=== PATIENT | male | born 1975 | race African-American/Black ===

== ENCOUNTER 2017-03-31 10:41 | Emergency (ER) | payer OTHER ==
[2017-03-31] MEDS ORDERED: Aspirin Low Dose CHEW TAB* 81 MG PO ONE (11:40)
[2017-03-31] MEDS ORDERED: Nitroglycerin TAB 0.4 MG* 0.4 MG TAB SL ONE (11:47)
[2017-03-31] MEDS ORDERED: NS 0.9% 1000 ML* 1,000 ML IV ONE (11:51)
[2017-03-31 12:11] VITALS: BP 190/120
--- NOTE | 2017-03-31 12:12 | UC ---
Davis Almaguer Angela, scribed for Dodie Aguiar MD on 03/31/17 at 1131 . Hypertension HPI - HPI Summary HPI Summary: This pt is a 41 y/o male presenting to [facility] c/o high blood pressure and dizziness since 2 days ago. Pt reports 2 days ago, on Thursday night, pt had tightness in hands and dizziness after eating some ribs. He states he had to grab on the valencia of the bathroom. Did not completely pass out or lose conciousness. Pt reports yesterday he took his BP at home, and it was 205/140. Pt reports feeling "tightness" on both hands and feet, alternating and intermittently. He didn't work yesterday as he didn't feel well. Pt works at [employer]. He is a current everyday smoker. PMHx: HTN. Pt is unsure if he has diabetes. FHx: HTN, diabetes. Pt's BP in the ED is 194/125. Last time he ate or drank water was last night. No GI issues. No diaphoresis. No sob perse. Denies chest pain. - History of Current Complaint Chief Complaint: UCGeneralIllness Stated Complaint: HIGH BLOOD PRESSURE Time Seen by Provider: 03/31/17 11:26 Hx Obtained From: Patient Onset/Duration: Lasting Days Associated Signs And Symptoms: Positive: Dizziness. Negative: Chest Pain, SOB Related Hx: Diagnosed As: - HTN - Risk Factors Cardiac Risk Factors: Hypertension, Family History - HTN and diabetes - Allergies/Home Medications Allergies/Adverse Reactions: Allergies Allergy/AdvReac Type Severity Reaction Status Date / Time No Known Allergies Allergy Verified 03/31/17 10:58 Home Medications: Home Medications Hydrochlorothiazide TAB* [Hydrodiuril TAB*] 50 mg PO DAILY 03/31/17 [History Confirmed 03/31/17] PMH/Surg Hx/FS Hx/Imm Hx Previously Healthy: Yes Other Endocrine History: DENIES: diabetes Cardiovascular History: Hypertension - Surgical History Surgical History: None - Family History Known Family History: Positive: Hypertension, Diabetes - Social History Occupation: Employed Full-time Alcohol Use: Occasionally Substance Use Type: Marijuana Smoking Status (MU): Current Every Day Smoker Review of Systems Constitutional: Other - high blood pressure Skin: Negative Eyes: Negative ENT: Negative Respiratory: Negative Cardiovascular: Negative Gastrointestinal: Negative Genitourinary: Negative Motor: Negative Neurovascular: Negative Musculoskeletal: Negative Neurological: Headache - dizziness. Tightness in left and right hands ( alternating) since Thursday night., Other - dizziness. Tightness in left and right hands (alternating). Psychological: Negative Is Patient Immunocompromised?: No All Other Systems Reviewed And Are Negative: Yes Physical Exam Triage Information Reviewed: Yes Appearance: Well-Appearing - sitting up. conversing easily and appropriately. non-diaphoretic., Well-Nourished Vital Signs: Initial Vital Signs Temp 98.0 F 03/31/17 10:52 Pulse 90 03/31/17 10:52 Resp 20 03/31/17 10:52 BP 194/125 03/31/17 10:52 Pulse Ox 100 03/31/17 10:52 Vital Signs Reviewed: Yes Eye Exam: Normal ENT Exam: Normal Neck exam: Normal Neck: Positive: Supple, Nontender Respiratory Exam: Normal Respiratory: Positive: Chest non-tender, Lungs clear, Normal breath sounds, No respiratory distress, No accessory muscle use Cardiovascular: Positive: RRR - ?S4., No Murmur, Pulses Normal - heart rate correlates with radial pulse., Brisk Capillary Refill Abdominal Exam: Normal - no bruit appreciated Abdomen Description: Positive: Nontender, No Organomegaly, Soft Bowel Sounds: Positive: Present Musculoskeletal Exam: Normal Musculoskeletal: Positive: Strength Intact, ROM Intact - moves all 4 ext's ok Neurological Exam: Normal - nonfocal, grossly intact Psychological Exam: Normal - conversing easily and appropriately Skin Exam: Normal - no visible or reported rash Diagnostics - EKG Cardiac Rate: NL Cardiac Rhythm: Sinus: Normal - 82 bpm. LAD. [address]H. anterior ST elevations V1-V3 ( probably LVH). CT 181. QTc 499. Hypertension Course/Dx - Course Course Of Treatment: Pt will be transferred to the ED via ambulance. I spoke to Dr. Sanchez, from the ED, at 11:44. Pt expresses understanding and agreement. Will go via EMS. EKG reviewed wt pt. no old for comp. Feels better s/p NTG / O2. ASA po 324mg chew. (note iv lopressor n/a). No no problems while in [facility]. FS glucose 107mg/dl. BP at time of departure 190/120. - Differential Dx/Diagnosis Provider Diagnoses: hypertensive emergency Discharge - Discharge Plan Condition: Guarded Disposition: ADMITTED TO [facility] Referrals: No Primary Care Phys,NOPCP [Primary Care Provider] - The documentation as recorded by the Davis yi Angela accurately reflects the service I personally performed and the decisions made by me, Dodie Aguiar MD.
== END 2017-03-31 12:05 | disposition short-term general hospital (02) ==
LOC: UCEAST 10:41
DX: I16.0 Hypertensive urgency (principal)
CPT/HCPCS: 93005; 99203; A9270-GY; G0463

== ENCOUNTER 2017-03-31 12:40 | Inpatient (IN) | payer OTHER ==
[2017-03-31] MEDS ORDERED: Labetalol IV* 5 MG/ML 20 ML VIAL IV PUSH ONE ×2 (14:25→15:42)
[2017-03-31] MEDS ORDERED: Nicotine PATCH 21 MG/24 HR* PATCH TRANSDERM ONE (14:27)
[2017-03-31] MEDS ORDERED: Nicotine PATCH 21 MG/24 HR* PATCH ONE (14:29)
[2017-03-31 14:50] LABS: Add Diff/Slide Review? Slide Review Added; Comments Flag Yes; Hematocrit 43 % (42-52); Hemoglobin 13.9 g/dl (14.0-18.0); Mean Corpuscular HGB Conc 33 g/dl (31-36); Mean Corpuscular Hemoglobin 23 pg (27-31); Mean Corpuscular Volume 71 fL (80-94); Mean Platelet Volume 9 um3 (7.4-10.4); Red Blood Count 6.04 10^6/ul (4.0-5.4); Red Cell Distribution Width 19 % (10.5-15); White Blood Count 8.2 10^3/ul (3.5-10.8)
[2017-03-31 14:50] LABS: Urine Bacteria Absent (Absent); Urine Bilirubin Negative (Negative); Urine Glucose Negative (Negative); Urine Nitrite Negative (Negative)
--- NOTE | 2017-03-31 14:51 | RAD ---
HISTORY: Loss of balance COMPARISONS: None TECHNIQUE: Multiple contiguous axial CT scans were obtained of the head without intravenous contrast. FINDINGS: HEMORRHAGE/INFARCT: There is no hemorrhage or acute infarct. MASSES/SHIFT: There is no mass or shift. EXTRA-AXIAL SPACES: There are no extra-axial fluid collections. SULCI AND VENTRICLES: The sulci and ventricles are normal in size and position for the patient's stated age. CEREBRUM: There are no focal parenchymal abnormalities. BRAINSTEM: There are no focal parenchymal abnormalities. CEREBELLUM: There are no focal parenchymal abnormalities. VESSELS: The vessels are grossly normal. PARANASAL SINUSES: The paranasal sinuses are clear. ORBITS: The orbits are unremarkable. BONES AND SOFT TISSUE: No bone or soft tissue abnormalities are noted. OTHER: None IMPRESSION: NO ACUTE INTRACRANIAL PATHOLOGY.
[2017-03-31 15:07] LABS: Albumin 4.1 g/dL (3.2-5.2); BUN/Creatinine Ratio 20.4 (8-20); Calcium 9.5 mg/dL (8.6-10.3); EGFR African American 114.6 (>60); EGFR Non-African American 89.1 (>60); Globulin 3.4 g/dL (2-4); Total Bilirubin 0.6 mg/dL (0.2-1.0); Total Protein 7.5 g/dL (6.4-8.9)
[2017-03-31 15:09] LABS: Troponin I 0.03 ng/mL (<0.04)
--- NOTE | 2017-03-31 15:14 | RAD ---
INDICATION: Hypertension. COMPARISON: There are no prior studies available for comparison. TECHNIQUE: A portable view of the chest was obtained. FINDINGS: The heart is within normal limits in size. There is increased soft tissue density at the thoracic inlet with mass effect and deviation of the trachea toward the right side possibly secondary to an enlarged thyroid gland versus a mediastinal mass. The lungs are clear. No pleural effusion is seen. IMPRESSION: 1. NO EVIDENCE FOR ACUTE FINDING. 2. INCREASED SOFT TISSUE DENSITY AT THE THORACIC INLET WITH DEVIATION OF THE TRACHEA TOWARD THE RIGHT SIDE POSSIBLY SECONDARY TO AN ENLARGED SUBSTERNAL THYROID GLAND VERSUS A MEDIASTINAL MASS. RECOMMEND CLINICAL CORRELATION AND CONSIDER A CT OF THE CHEST WITH CONTRAST FOR FURTHER EVALUATION.
[2017-03-31 15:51] LABS: Hypochromasia 2+; Microcytosis 2+
[2017-03-31 15:52] LABS: Add Path Review? YES; Schistocytes 1+
--- NOTE | 2017-03-31 16:12 | ED ---
Nain Almaguer Rebecca, scribed for Martin Sanchez MD on 03/31/17 at 1407 . Hypertension - HPI Summary HPI Summary: Pt is a 41 y/o M BIBA from [facility] who presents to ED c/o HTN. Pt reports that the other night he had just left work at [employer], which is a very active job, and got home around 0030. States he had some ribs then began experiencing unsteady gait, stating he as "bumping into valencia." He then took his BP which was 205/140. He proceeded to rest for 30 minutes and retook it, then it was 180/ 130. Reports "so-so" dizziness today, aggravated by heat. Additionally c/o "warmth" and pain around the back of the neck, mild SOB and "tightness" in the hands. Denies CP, palpitations. States that his BP often runs around 160/120- 130. PMHx HTN for which he was previously on Altace and is currently prescribed Hydrochlorothiozide with FHx HTN, DM. Pt has not taken any medications for HTN today - ran out about 1.5-2 weeks ago. - History of Current Complaint Chief Complaint: EDHypertension Stated Complaint: HIGH BLOOD PRESSURE-SENT FROM [facility] Time Seen by Provider: 03/31/17 14:07 Hx Obtained From: Patient Onset/Duration: Still Present Aggravating Factor(s): Other: - Dizziness - aggravated by heat Alleviating Factor(s): Nothing Associated Signs & Symptoms: SOB - mild, Other: - "warmth" and pain in the back of the neck, "tightness" in the hands, unsteady gait Related Hx: Rx Non-Compliance - Has not taken medications for 1.5-2 weeks due to running out - Allergies/Home Medications Allergies/Adverse Reactions: Allergies Allergy/AdvReac Type Severity Reaction Status Date / Time No Known Allergies Allergy Verified 03/31/17 10:58 PMH/Surg Hx/FS Hx/Imm Hx Endocrine/Hematology History: Denies: Hx Diabetes, Hx Thyroid Disease Cardiovascular History: Reports: Hx Hypertension Respiratory History: Denies: Hx Asthma, Hx Chronic Obstructive Pulmonary Disease (COPD) GI History: Denies: Hx Ulcer Infectious Disease History: No Infectious Disease History: Denies: Hx Clostridium Difficile, Hx Hepatitis, Hx Human Immunodeficiency Virus (HIV), Hx of Known/Suspected MRSA, Hx Shingles, Hx Tuberculosis, Hx Known/ Suspected VRE, Hx Known/Suspected VRSA, History Other Infectious Disease, Traveled Outside the [place] in Last 30 Days - Family History Known Family History: Positive: Hypertension, Diabetes - Social History Alcohol Use: Occasionally Substance Use Type: Reports: Marijuana Smoking Status (MU): Current Every Day Smoker Review of Systems Positive: Other - HTN Negative: Palpitations, Chest Pain Positive: Shortness Of Breath - mild Positive: Arthralgia - "warmth" and pain in the back of the neck, "tightness" in the hands Neurological: Other - Unsteady gait All Other Systems Reviewed And Are Negative: Yes Physical Exam Triage Information Reviewed: Yes Vital Signs On Initial Exam: Initial Vitals Temp Pulse Resp BP Pulse Ox 97.9 F 74 16 188/116 99 03/31/17 13:05 03/31/17 13:05 03/31/17 13:05 03/31/17 13:05 03/31/17 13:05 Vital Signs Reviewed: Yes Appearance: Positive: Well-Appearing, No Pain Distress Skin: Positive: Warm, Skin Color Reflects Adequate Perfusion Head/Face: Positive: Normal Head/Face Inspection Eyes: Positive: EOMI ENT: Positive: Normal ENT inspection Neck: Positive: Supple, Nontender Respiratory/Lung Sounds: Positive: Clear to Auscultation, Breath Sounds Present Cardiovascular: Positive: RRR. Negative: Murmur Abdomen Description: Positive: Nontender Musculoskeletal: Positive: Strength/ROM Intact Neurological: Positive: Sensory/Motor Intact, Alert, Oriented to Person Place, Time, CN Intact II-III, Finger to Nose - smooth, Ataxic Gait - slight off balance and fall toward the right - Rigoberto Coma Scale Coma Scale Total: 15 Diagnostics - Vital Signs Vital Signs Temp Pulse Resp BP Pulse Ox 03/31/17 13:05 97.9 F 74 16 188/116 99 - Laboratory Lab Results: Lab Results 03/31/17 03/31/17 03/31/17 Range/Units 11:45 11:45 14:30 WBC 8.2 (3.5-10.8) 10^3/ul RBC 6.04 H (4.0-5.4) 10^6/ul Hgb 13.9 L (14.0-18.0) g/dl Hct 43 (42-52) % MCV 71 L (80-94) fL MCH 23 L (27-31) pg MCHC 33 (31-36) g/dl RDW 19 H (10.5-15) % Plt Count 353 (150-450) 10^3/ul MPV 9 (7.4-10.4) um3 Neut % (Auto) 61.9 (38-83) % Lymph % (Auto) 27.6 (25-47) % Gaston % (Auto) 9.0 (1-9) % Eos % (Auto) 1.3 (0-6) % Baso % (Auto) 0.2 (0-2) % Absolute Neuts (auto) 5.1 (1.5-7.7) 10^3/ul Absolute Lymphs (auto) 2.3 (1.0-4.8) 10^3/ul Absolute Monos (auto) 0.7 (0-0.8) 10^3/ul Absolute Eos (auto) 0.1 (0-0.6) 10^3/ul Absolute Basos (auto) 0 (0-0.2) 10^3/ul Absolute Nucleated RBC 0 10^3/ul Nucleated RBC % 0 Sodium 140 (133-145) mmol/L Potassium Pending Chloride 104 (101-111) mmol/L Carbon Dioxide 27 (22-32) mmol/L Anion Gap Pending BUN 19 (6-24) mg/dL Creatinine 0.93 (0.67-1.17) mg/dL Est GFR ( Amer) 114.6 (>60) Est GFR (Non-Af Amer) 89.1 (>60) BUN/Creatinine Ratio 20.4 H (8-20) Glucose 95 (70-100) mg/dL Calcium 9.5 (8.6-10.3) mg/dL Total Bilirubin 0.60 (0.2-1.0) mg/dL AST Pending ALT 20 (7-52) U/L Alkaline Phosphatase 86 (34-104) U/L Total Creatine Kinase 221 (10-223) U/L Troponin I 0.03 (<0.04) ng/mL Total Protein 7.5 (6.4-8.9) g/dL Albumin 4.1 (3.2-5.2) g/dL Globulin 3.4 (2-4) g/dL Albumin/Globulin Ratio 1.2 (1-3) Urine Color Yellow Urine Appearance Clear Urine pH 6.0 (5-9) Ur Specific [place] 1.018 (1.010-1.030) Urine Protein Negative (Negative) Urine Ketones Negative (Negative) Urine Blood 2+ H (Negative) Urine Nitrate Negative (Negative) Urine Bilirubin Negative (Negative) Urine Urobilinogen Negative (Negative) Ur Leukocyte Esterase Negative (Negative) Urine WBC (Auto) Trace(0-5/hpf) (Absent) Urine RBC (Auto) 3+(>10/hpf) H (Absent) Urine Bacteria Absent (Absent) Urine Glucose Negative (Negative) Urine Ascorbic Acid * H (Negative) Result Diagrams: 03/31/17 11:45 03/31/17 11:45 Lab Statement: Any lab studies that have been ordered have been reviewed, and results considered in the medical decision making process. - Radiology CXR Xray Interpretation: Positive (See Comments) - 1. NO EVIDENCE FOR ACUTE FINDING. 2. INCREASED SOFT TISSUE DENSITY AT THE THORACIC INLET WITH DEVIATION OF THE TRACHEA TOWARD THE RIGHT SIDE POSSIBLY SECONDARY TO AN ENLARGED SUBSTERNAL THYROID GLAND VERSUS A MEDIASTINAL MASS. RECOMMEND CLINICAL CORRELATION AND CONSIDER A CT OF THE CHEST WITH CONTRAST FOR FURTHER EVALUATION. ED physician reviewed radiology report and agrees. Radiology Interpretation Completed By: Radiologist - CT Brain CT CT Interpretation: No Acute Changes - NO ACUTE INTRACRANIAL PATHOLOGY. ED physician reviewed radiology report and agrees. CT Interpretation Completed By: Radiologist - EKG 1449 Cardiac Rate: NL - 76 bpm EKG Rhythm: Sinus Rhythm EKG Interpretation: No STEMI, no acute changes Re-Evaluation - Re-Evaluation First Eval Re-Evaluation Time: 15:40 Comment: Pt is doing well. Second Eval Change: Improved Comment: BP only marginally improved. Dr Belcher and Case consutled and will be admitted. Hypertension Course/Dx - Course Course Of Treatment: 41 yrold with hypertensive urgency, and admission for treatment to hospital - Diagnoses Provider Diagnoses: Hypertensive urgency - Physician Notifications Discussed Care Of Patient With: Jeremi Belcher Time Discussed With Above Provider: 16:00 Instructed by Provider To: Other - Advised that in the ED continued efforts to lower his BP are done as well as discussion with the hospitalist about admission , continued management and MRIs. Discussed care of pt with Dr. Willoughby at 1609 who accepts pt for admission. - Critical Care Time Critical Care Time: 30-74 min Discharge - Discharge Plan Condition: Good Disposition: ADMITTED TO [facility] The documentation as recorded by the Nain yi Rebecca accurately reflects the service I personally performed and the decisions made by me, Martin Sanchez MD.
[2017-03-31 16:16] LABS: Potassium 3.9 mmol/L (3.5-5.0)
[2017-03-31] MEDS ORDERED: PROCHLORPERAZINE INJ 5 MG/ML 2 ML VIAL IV PRN (16:29)
[2017-03-31] MEDS ORDERED: Acetaminophen TAB* 325 MG PO PRN (16:29)
[2017-03-31] MEDS: Nicotine PATCH 21 MG/24 HR* PATCH TRANSDERM SCH (16:39)
[2017-03-31] MEDS ORDERED: Iohexol 350* (CONTRAST) 500 ML MDV IV ONE ×2 (16:43→17:03)
[2017-03-31] MEDS ORDERED: niCARdipine 0.1MG/ML IVPREMIX* 20 MG/200 ML BAG IV SCH (17:00)
--- NOTE | 2017-03-31 18:07 | RAD ---
INDICATION: Tracheal deviation, hypertensive emergency evaluate for aneurysm. COMPARISON: Comparison is made with a prior chest x-ray study from March 31, 2017. TECHNIQUE: A CT angiogram of the chest, abdomen and pelvis was performed with intravenous contrast following intravenous injection of 100 ml of Omnipaque 350 nonionic contrast. Contiguous axial sections were obtained from the lung apices through the symphysis pubis. Images were reconstructed in the coronal and sagittal planes and in a 3-D volume rendered reformatted. FINDINGS: CT ANGIOGRAM OF THE CHEST: There is relatively homogeneous opacification of the pulmonary arteries. No intraluminal filling defect or pulmonary embolism is seen. There is partial anomalous pulmonary venous return with the left upper lobe pulmonary veins draining into the left innominate vein. The heart is normal in size. There appears to be thickening of the wall of the left ventricle suggestive of left ventricular hypertrophy. The thoracic aorta is normal in caliber and demonstrates homogeneous contrast opacification without evidence for dissection. There is a large nodular substernal goiter causing tracheal deviation toward the right side. Recommend follow-up thyroid ultrasound for further evaluation. No significant enlarged mediastinal or hilar lymph nodes are seen. The lungs are clear. No pleural effusion is seen. CT ANGIOGRAM OF THE ABDOMEN AND PELVIS: The abdominal aorta is normal in caliber without hemodynamically significant stenosis. The celiac axis, superior and inferior mesenteric arteries appear patent without evidence for hemodynamically significant stenosis. There are single bilateral renal arteries without hemodynamically significant stenosis. The liver and spleen are normal in size. The liver is decreased in attenuation consistent with fatty infiltration. No significant focal abnormality is seen on this noncontrast study. There is calcific density within the gallbladder most consistent with gallstones. No gallbladder wall thickening is seen. The pancreas appears to be within normal limits. The adrenal glands appear mildly enlarged suggestive of adrenal gland hyperplasia. The kidneys are normal in size without significant focal abnormality or hydronephrosis. No significant enlarged retroperitoneal lymph nodes are seen. The stomach, small and large bowel appear nondistended. There is no evidence for diverticulitis or colitis. No free intraperitoneal air or fluid is seen. No significant focal osseous abnormality is seen. IMPRESSION: 1. NO EVIDENCE FOR AORTIC DISSECTION OR PULMONARY EMBOLISM. 2. PARTIAL ANOMALOUS PULMONARY VENOUS RETURN. THE LEFT UPPER LOBE PULMONARY VEINS DRAIN INTO THE LEFT INNOMINATE VEIN. 3. FINDINGS SUGGESTIVE OF LEFT VENTRICULAR HYPERTROPHY CONSIDER ECHOCARDIOGRAPHY FOR FURTHER EVALUATION. 4. LARGE NODULAR SUBSTERNAL GOITER. CONSIDER FOLLOW-UP THYROID ULTRASOUND EVALUATION. 5. PROBABLE CHOLELITHIASIS.
--- NOTE | 2017-03-31 18:11 | RAD ---
INDICATION: Ataxia and hypertension. COMPARISON: Comparison is made with a prior CT of the brain from March 31, 2017. TECHNIQUE: A CT angiogram of the head and neck was performed following intravenous injection of 80 ml of Omnipaque 350 nonionic contrast. Contiguous axial sections were obtained from the thoracic inlet through the skull vertex. Images were reconstructed in the coronal and sagittal planes and in a 3-D volume rendered format. The distal cervical internal carotid artery diameter is used as the denominator for stenosis measurement. FINDINGS: RIGHT CAROTID: The common and internal carotid arteries appear widely patent without evidence for stenosis. LEFT CAROTID: The common and internal carotid arteries appear widely patent without evidence for stenosis. VERTEBRALS: The vertebral arteries appear patent. CTA BRAIN: The internal carotid, anterior and middle cerebral arteries appear patent without evidence for high-grade stenosis or occlusion. The vertebral, basilar and posterior cerebral arteries appear patent without evidence for high-grade stenosis or occlusion. No gross focal perfusion abnormalities are seen. No aneurysm or vascular malformation is seen. NECK: There is a large nodular substernal goiter which causes deviation of the trachea toward the right side. Consider follow-up outpatient ultrasound for further evaluation. No significant enlarged lymph nodes are seen. The parotid and submandibular glands appear normal. The lung apices appear clear. The sinuses are clear. IMPRESSION: 1. NO EVIDENCE FOR ANEURYSM. 2. NO EVIDENCE FOR CAROTID STENOSIS. 3. NODULAR SUBSTERNAL GOITER CAUSING TRACHEAL DEVIATION. CONSIDER FOLLOW-UP OUTPATIENT ULTRASOUND IMAGING FOR FURTHER EVALUATION. CPT II Codes: 3100F
--- NOTE | 2017-03-31 18:16 | RAD ---
INDICATION: Ataxia and hypertension. COMPARISON: Comparison is made with a prior CT of the brain from March 31, 2017. TECHNIQUE: Sagittal T1, axial T1, T2, susceptibility, FLAIR and diffusion weighted images were obtained. FINDINGS: The ventricles, cisterns and sulci appear to be within normal limits. No significant focal abnormality or mass effect is seen. No areas of restricted diffusion are present. There is no evidence for infarct or hemorrhage. The visualized portion of the paranasal sinuses and mastoid air cells appear clear. IMPRESSION: NEGATIVE EXAM.
[2017-03-31 18:46] LABS: Free T4 1.1 ng/dL (0.61-1.12)
[2017-03-31 18:48] LABS: TSH (Thyroid Stimulating Horm) 1.24 mcIU/mL (0.34-5.60)
[2017-03-31] MEDS ORDERED: Nicotine Patch Removal NOTE FOLLOW UP SCH (21:00)
--- NOTE | 2017-03-31 22:18 | HP ---
CC: Dr. Belcher* HISTORY AND PHYSICAL: DATE OF ADMISSION: 03/31/17 TIME OF EVALUATION: 4:25 p.m. PRIMARY CARE PHYSICIAN: The patient has no primary care provider. CONSULTING NEUROLOGIST: Dr. Belcher. CHIEF COMPLAINT: "My blood pressure is really high." HISTORY OF PRESENT ILLNESS: Mr. Pacheco is a 41-year-old male with a known history of hypertension that has not been treated for a longtime. The patient states that he is very busy at work, does not have a chance to see a primary care provider and "just let things go." Last night, he was complaining of headache on the posterior aspect of his head, radiating to his neck and he states that he usually has this pain when he is very tired or hungry. He had 4 pieces of pizza, took some Tylenol and had improvement. This morning, he woke up throwing up and feeling dizzy. He states he noticed that he was trying to walk straight, but kept falling to the right. He describes episodes like this in the past, but they are usually not this intense. His girlfriend checked his blood pressure and he was 205/140, so he decided to go to [facility] for evaluation and from there, he was referred to our emergency room. His blood pressure here was 199/126. He received 2 doses of IV labetalol with no significant change and the hospitalist service was called for evaluation. PAST MEDICAL HISTORY: 1. Hypertension. 2. Tobacco abuse. SOCIAL HISTORY: The patient is a smoker, half a pack a day since his early 20s. States that he occasionally drinks wine and smokes marijuana daily. He works at [employer]. Surrogate decision maker is his mother, Taylor Pacheco, phone number is [phone]. FAMILY HISTORY: The patient describes a strong family history of hypertension and diabetes on both his maternal and paternal side. Denies any history of cancer in the family. REVIEW OF SYSTEMS: A 14-point review of system was performed and all other pertinent negative and positive findings are in the HPI. PHYSICAL EXAMINATION General: The patient is a pleasant young male, sitting up in the ED stretcher, in no acute distress. Vital Signs: Temperature 97.8, heart rate is 84, respiratory rate 17, oxygen saturation is 99% on room air, blood pressure is 188/123. HEENT: Pupils are equal. Moist mucous membranes. CHEST: Breath sounds present bilaterally with no added sounds. CVS: Normal S1 and S2. Regular rate and rhythm. ABDOMEN: Soft, bowel sounds are present. EXTREMITIES: No edema. NEURO: He is alert and oriented x3. Able to move all 4 extremities. Face is symmetric. Gait is normal with no ataxia at this point. LABORATORY STUDIES/DIAGNOSTIC STUDIES: The patient had a CBC that showed WBC of 8.2, hemoglobin of 13.9, hematocrit of 43, platelets of 353. Chemistries showed a sodium of 140, potassium 3.9, chloride 104, bicarb of 27, BUN of 19, creatinine of 0.93, glucose of 95. Calcium of 9.5. LFTs are normal. CPK is 221. Troponin is 0.03. Urinalysis showed 2+ blood, trace wbc's. CT of the brain without contrast showed no acute intracranial pathology. Portable chest x-ray showed increased soft tissue density at the thoracic inlet with deviation of the trachea towards the right side possibly secondary to an enlarged substernal thyroid gland versus a mediastinal mass. Recommend clinical correlation and consider CT of the chest with contrast for further evaluation. EKG done on 03/31/17 at 1449 showed sinus rhythm at 76 beats per minute with signs of LVH. Mild ST depression in V5 and V6 that could also represent LVH. His EKG done on the same date at [facility] showed similar changes, may be the T inversions are more pronounced on the first EKG. ASSESSMENT AND PLAN: Mr. Pacheco is a 41-year-old male with known untreated hypertension, tobacco abuse, that presented to the emergency room with complaints of headaches, dizziness, nausea, vomiting, found to have hypertensive emergency. 1. Hypertensive emergency. The patient did not respond to IV labetalol in the emergency room and the plan is to have him admitted to the intensive care unit for a nicardipine drip for faster blood pressure control. The goal is to bring his systolic blood pressure down to 150 to 160. He probably has had uncontrolled hypertension for a long time and if we lowered his blood pressure too fast, he would probably become symptomatic. If he responds to Cardene drip , then he could be transitioned to an oral calcium channel gema, but I am pretty sure he is going to require more than one agent for blood pressure control. 2. Ataxia. This is likely secondary to vasospasm associated with hypertensive emergency, but the patient is at risk for stroke. Neurology consultation was requested with Dr. Belcher. The patient is going to have an MRI of the brain and a CTA of the head and the neck. He will be monitored with neurological checks. 3. Hypertrophic cardiomyopathy. I suspect the patient likely has some LVH in the setting of chronic uncontrolled hypertension. His EKG changes are suggestive of LVH, but he is at risk for coronary artery disease. At this point , he has no complaints of chest pain and his troponin was negative. I am going to request an echocardiogram and depending on his echo result and any arrhythmias on telemetry when his blood pressure is controlled, he would benefit of a stress test. 4. Tracheal deviation to the right. His chest x-ray showed that his trachea is deviated to the right. With his history of tobacco abuse, I am concerned with the possibility of a tumor and with his chronically uncontrolled hypertension, I am concerned with the possibility of aneurysm. He will have a CTA of the chest, abdomen and pelvis to further investigate the possibilities. 5. Tobacco abuse. The patient will have nicotine supplementation. He says he is not ready to quit right now. 6. DVT prophylaxis. The patient has a score of 1 on the DVT Prophylaxis Risk Assessment Guide and we are going to put SCDs only. 7. Code status is full. TIME SPENT: Approximately 60 minutes were spent with the patient interview, medical records review, physical examination to complete admission, more than half of this time was spent [id number] with the patient in coordination of care. [id number]/[facility] #: [id number] GRACE
--- NOTE | 2017-04-01 08:45 | ECHO ---
Patient: KANG BASURTO [facility] Rec#: [id number] : 1975 Date: 04/01/2017 Age: 41y Height: 167.64 cm / 66.0 in Weight: 76.2 kg / 167.9 lbs Sex: M BSA: 1.86 Room#: [facility] Admit Date#: 03/31/2017 Type: Inpatient Referring: Priyanka Rosario MD Reading: Margarette Bay MD Chemical Equipment Repairer: [facility] Tran[facility]horacic Echocardiogram Indication: Hypertensive emergency BP: 171/113 HR: 71 Rhythm: NSR Findings History: HTN, daily marijuana use. Technical Comments: The study quality is good. Completed at 0810. Left Ventricle: The left ventricular chamber size is normal. Moderate concentric left ventricular hypertrophy is observed. There is moderately decreased left ventricular systolic function. The estimated ejection fraction is 35-40%. Abnormal left ventricular diastolic function is observed.Biphasic diastole noted. Abnormal left ventricular diastolic filling is observed, consistent with impaired relaxation. Left Atrium: The left atrium is mild to moderately dilated. Right Ventricle: Moderator Band present. The right ventricular cavity size is normal. The right ventricular global systolic function is normal. Right Atrium: The right atrium is mildly dilated. Aortic Valve: The aortic valve is trileaflet. There is a trace of aortic regurgitation. There is no evidence of aortic stenosis. Mitral Valve: The mitral valve leaflets are mildly thickened. There is trace to mild mitral regurgitation. There is no evidence of mitral stenosis. Tricuspid Valve: The tricuspid valve leaflets are normal. There is trace to mild tricuspid regurgitation. The right ventricular systolic pressure is estimated at 24 mmHg. There is evidence that pulmonary hypertension may be underestimated. There is no tricuspid stenosis. Pulmonic Valve: The pulmonic valve appears normal. There is a trace pulmonic regurgitation. There is no pulmonic stenosis. Pericardium: There is no significant pericardial effusion. Aorta: There is no dilatation of the ascending aorta. There is no dilatation of the aortic arch. The aortic root is normal in size. Pulmonary Artery: The main pulmonary artery appears normal. Venous: The inferior vena cava appears normal in size. There is a greater than 50% respiratory change in the inferior vena cava dimension. Conclusions Moderate concentric left ventricular hypertrophy is observed. There is moderately decreased left ventricular systolic function. The estimated ejection fraction is 35-40%. Abnormal left ventricular diastolic filling is observed, consistent with impaired relaxation. The right ventricular global systolic function is normal. All valve leaflets appear thin with good excursion. There is a trace of aortic regurgitation. There is trace to mild mitral regurgitation. There is trace to mild tricuspid regurgitation. No prior echo to compare. Measurements Name Value Normal Range RVIDd (AP) 2D 3.2 cm (0.9 - 2.6) RVDdMajor (2D) 3.9 cm (2.2 - 4.4) RAd ISD 4CH 5.2 cm (3.4 - 4.9) RA (A4C)W 4.1 cm (2.9 - 4.6) IVSd (2D) 1.4 cm (0.6 - 1) LVPWd (2D) 1.4 cm (0.6 - 1) LVIDd (2D) 4.6 cm (3.6 - 5.4) LVIDs (2D) 3.8 cm - LV FS (2D) 16 % (25 - 45) Aortic Annulus 2.2 cm (1.4 - 2.6) Ao root diameter (2D) 3.4 cm (2.1 - 3.5) Ascending Ao 3.2 cm (2.1 - 3.4) Aortic arch 2.6 cm (1.8 - 3.4) LA dimension (AP) 2D 4.1 cm (2.3 - 3.8) LAd ISD 4CH 5.1 cm (2.9 - 5.3) LA ISD 4CH W 4.3 cm (2.5 - 4.5) Name Value Normal Range LA ESV SP 4CH (A/L) 54 ml - LA ESV SP 2CH (A/L) 80 ml - LA ESV BP (A/L) 69 ml - LA ESV BP (A/L) index 37 ml/m2 - LA ESV SP 4CH (MOD) 50 ml - LA ESV SP 2CH (MOD) 72 ml - Name Value Normal Range MV E-wave Vmax 0.53 m/sec - MV deceleration time 200.1 msec - MV A-wave Vmax 0.76 m/sec - MV E:A ratio 0.7 ratio - LV septal e' Vmax 0.04 m/sec - LV lateral e' Vmax 0.04 m/sec - LV E:e' septal ratio 13.25 ratio - LV E:e' lateral ratio 13.25 ratio - Name Value Normal Range AV Vmax 1.4 m/sec - AV VTI 23.2 cm - AV peak gradient 7.37 mmHg - AV mean gradient 4.21 mmHg - LVOT Vmax 0.9 m/sec - LVOT VTI 14 cm - LVOT peak gradient 3.37 mmHg - LVOT mean gradient 1.57 mmHg - VAMSI Vmax 0.67 m/sec - Name Value Normal Range TR Vmax 2.3 m/sec - TR peak gradient 21 mmHg - RAP 3 mmHg - RVSP 24 mmHg - IVC diameter 1.6 cm - Name Value Normal Range PV Vmax 1 m/sec - PV peak gradient 4.06 mmHg -
[2017-04-01] MEDS ORDERED: Influenza VAC *QUAD* 2017-18* 0.5 ML SYRINGE IM ONE ×2 (09:00→21:00)
--- NOTE | 2017-04-01 09:21 | PN ---
Subjective Date of Service: 04/01/17 Interval History: Pt is not happy with staying another day. Multiple questions answered explaining the situation and letting pt know that him blood pressure needs to be more controlled when he goes home. Unfortunately despite multiple 3xplanationas it appears difficult for pt to comprehend his serous medical problems. thyroid goiter was explained to pt and pt understands that he needs to f/u with PCP in re:enlarged thyroid. His ataxia resolved. Feels well, denies Headache, SOB/CP Objective Active Medications: Acetaminophen (Tylenol Tab*) 650 mg PO Q6H PRN PRN Reason: pain/fever Last Admin: 03/31/17 22:04 Dose: 650 mg Amlodipine Besylate (Norvasc Tab*) 10 mg PO DAILY [facility] Nicardipine/Sodium Chloride (Cardene 0.1mg/Ml Ivpremix*) 20 mg in 200 mls @ 50 mls/hr IV .(as Initial Rate) GERALDINE PRN Reason: 5 MG/HR Last Admin: 03/31/17 18:31 Dose: 50 mls/hr Metoprolol Tartrate (Lopressor Tab*) 12.5 mg PO Q12HR [facility] Nicotine (Nicotine Inhaler*) 10 mg INH Q2H PRN PRN Reason: CRAVING Nicotine (Nicotine Patch 21 Mg/24 Hr*) 1 patch TRANSDERM DAILY [facility] Last Admin: 03/31/17 16:39 Dose: 1 patch Pharmacy Profile Note (Nicotine Patch Removal Note*) 1 note FOLLOW UP 2100 [facility] Last Admin: 03/31/17 23:03 Dose: 1 note Prochlorperazine Edisylate (Compazine Inj*) 5 mg IV Q6H PRN PRN Reason: NAUSEA/VOMITING Vital Signs 03/31/17 03/31/17 03/31/17 16:39 16:41 18:02 Temperature 98.5 F Pulse Rate 72 74 Respiratory 23 Rate Blood Pressure 165/111 205/139 (mmHg) O2 Sat by Pulse 98 100 Oximetry 03/31/17 03/31/17 03/31/17 18:05 18:06 18:07 Temperature 98.5 F Pulse Rate 70 71 Respiratory 73 23 23 Rate Blood Pressure 205/139 205/139 (mmHg) O2 Sat by Pulse 99 100 Oximetry 03/31/17 03/31/17 03/31/17 18:15 18:30 18:38 Temperature Pulse Rate 70 66 84 Respiratory 16 15 22 Rate Blood Pressure 207/136 192/129 (mmHg) O2 Sat by Pulse 99 99 100 Oximetry 03/31/17 03/31/17 03/31/17 18:45 19:00 19:01 Temperature Pulse Rate 84 91 101 Respiratory 19 20 20 Rate Blood Pressure 178/127 163/109 (mmHg) O2 Sat by Pulse 99 100 99 Oximetry 03/31/17 03/31/17 03/31/17 19:12 19:15 19:46 Temperature Pulse Rate 87 91 86 Respiratory 17 18 19 Rate Blood Pressure 162/93 154/97 (mmHg) O2 Sat by Pulse 99 99 100 Oximetry 03/31/17 03/31/17 03/31/17 19:59 20:00 20:01 Temperature 98.0 F Pulse Rate 90 89 88 Respiratory 20 24 18 Rate Blood Pressure 146/98 157/88 (mmHg) O2 Sat by Pulse 100 98 99 Oximetry 03/31/17 03/31/17 03/31/17 20:08 20:15 20:30 Temperature Pulse Rate 86 93 Respiratory 20 23 24 Rate Blood Pressure 158/95 178/113 (mmHg) O2 Sat by Pulse 100 98 Oximetry 03/31/17 03/31/17 03/31/17 20:36 20:46 21:00 Temperature Pulse Rate 91 84 Respiratory 20 20 18 Rate Blood Pressure 153/78 144/86 (mmHg) O2 Sat by Pulse 99 99 Oximetry 03/31/17 03/31/17 03/31/17 21:01 21:12 21:15 Temperature Pulse Rate 85 84 85 Respiratory 19 17 19 Rate Blood Pressure 150/83 (mmHg) O2 Sat by Pulse 99 98 99 Oximetry 03/31/17 03/31/17 03/31/17 21:25 21:33 21:42 Temperature Pulse Rate 84 93 93 Respiratory 22 21 19 Rate Blood Pressure 134/83 173/113 (mmHg) O2 Sat by Pulse 98 99 99 Oximetry 03/31/17 03/31/17 03/31/17 21:45 21:46 22:00 Temperature Pulse Rate 84 90 80 Respiratory 16 19 16 Rate Blood Pressure 162/111 159/105 (mmHg) O2 Sat by Pulse 100 99 100 Oximetry 03/31/17 03/31/17 03/31/17 22:01 22:12 22:14 Temperature Pulse Rate 83 83 Respiratory 18 18 17 Rate Blood Pressure (mmHg) O2 Sat by Pulse 100 98 Oximetry 03/31/17 03/31/17 03/31/17 22:15 22:30 22:44 Temperature Pulse Rate 83 76 83 Respiratory 21 21 22 Rate Blood Pressure 156/119 169/106 (mmHg) O2 Sat by Pulse 99 100 100 Oximetry 03/31/17 03/31/17 03/31/17 22:45 22:48 23:00 Temperature Pulse Rate 83 85 81 Respiratory 13 24 30 Rate Blood Pressure 163/102 (mmHg) O2 Sat by Pulse 100 100 100 Oximetry 03/31/17 03/31/17 03/31/17 23:01 23:15 23:17 Temperature Pulse Rate 76 82 81 Respiratory 17 30 23 Rate Blood Pressure 167/94 161/100 (mmHg) O2 Sat by Pulse 99 100 100 Oximetry 03/31/17 04/01/17 04/01/17 23:31 00:00 00:01 Temperature Pulse Rate 83 78 79 Respiratory 15 22 18 Rate Blood Pressure 150/101 163/112 (mmHg) O2 Sat by Pulse 100 100 100 Oximetry 04/01/17 04/01/17 04/01/17 00:09 00:13 00:14 Temperature Pulse Rate 78 79 Respiratory 17 14 21 Rate Blood Pressure (mmHg) O2 Sat by Pulse 98 97 Oximetry 04/01/17 04/01/17 04/01/17 00:15 00:18 00:30 Temperature 98.7 F Pulse Rate 79 76 Respiratory 17 23 Rate Blood Pressure 166/104 167/102 (mmHg) O2 Sat by Pulse 99 100 Oximetry 04/01/17 04/01/17 04/01/17 00:45 01:00 01:01 Temperature Pulse Rate 69 73 73 Respiratory 17 17 17 Rate Blood Pressure 157/108 160/103 (mmHg) O2 Sat by Pulse 98 96 96 Oximetry 04/01/17 04/01/17 04/01/17 01:15 01:30 01:45 Temperature Pulse Rate 81 66 74 Respiratory 20 16 24 Rate Blood Pressure 155/101 148/88 154/96 (mmHg) O2 Sat by Pulse 97 99 98 Oximetry 04/01/17 04/01/17 04/01/17 02:00 02:01 02:06 Temperature Pulse Rate 69 69 Respiratory 19 18 17 Rate Blood Pressure 140/93 (mmHg) O2 Sat by Pulse 95 96 Oximetry 04/01/17 04/01/17 04/01/17 02:15 02:30 02:45 Temperature Pulse Rate 72 68 68 Respiratory 18 18 19 Rate Blood Pressure 134/88 141/93 158/94 (mmHg) O2 Sat by Pulse 98 98 99 Oximetry 04/01/17 04/01/17 04/01/17 03:00 03:01 03:15 Temperature Pulse Rate 63 62 64 Respiratory 17 18 18 Rate Blood Pressure 147/93 145/88 (mmHg) O2 Sat by Pulse 96 97 99 Oximetry 04/01/17 04/01/17 04/01/17 03:30 03:45 04:00 Temperature Pulse Rate 72 66 69 Respiratory 14 17 16 Rate Blood Pressure 143/94 151/103 160/109 (mmHg) O2 Sat by Pulse 99 99 98 Oximetry 04/01/17 04/01/17 04/01/17 04:01 04:15 04:30 Temperature 97.7 F Pulse Rate 69 63 61 Respiratory 17 17 17 Rate Blood Pressure 137/89 152/91 (mmHg) O2 Sat by Pulse 97 98 100 Oximetry 04/01/17 04/01/17 04/01/17 05:00 05:01 05:17 Temperature Pulse Rate 64 68 Respiratory 17 15 14 Rate Blood Pressure 144/93 (mmHg) O2 Sat by Pulse 100 99 Oximetry 04/01/17 04/01/17 04/01/17 05:31 06:00 06:01 Temperature Pulse Rate 65 63 63 Respiratory 19 20 16 Rate Blood Pressure 171/112 177/107 (mmHg) O2 Sat by Pulse 100 100 100 Oximetry 04/01/17 04/01/17 04/01/17 06:18 06:22 06:26 Temperature Pulse Rate 73 68 Respiratory 18 16 19 Rate Blood Pressure 185/126 171/113 (mmHg) O2 Sat by Pulse 100 98 Oximetry Oxygen Devices in Use Now: None Appearance: 41 yo M in nAD, AAOx3 Eyes: No Scleral Icterus, PERRLA Ears/Nose/Mouth/Throat: NL Teeth, Lips, Gums, Mucous Membranes Moist Neck: NL Appearance and Movements; NL JVP, Trachea Midline Respiratory: Symmetrical Chest Expansion and Respiratory Effort, Clear to Auscultation Cardiovascular: NL Sounds; No Murmurs; No JVD, RRR Abdominal: NL Sounds; No Tenderness; No Distention, No Hepatosplenomegaly Lymphatic: No Cervical Adenopathy Extremities: No Edema, No Clubbing, Cyanosis Skin: No Rash or Ulcers Neurological: Alert and Oriented x 3, NL Muscle Strength and Tone Result Diagrams: 03/31/17 11:45 03/31/17 11:45 Additional Lab and Data: Lab Results 03/31/17 03/31/17 03/31/17 Range/Units 11:45 11:45 14:30 WBC 8.2 (3.5-10.8) 10^3/ul RBC 6.04 H (4.0-5.4) 10^6/ul Hgb 13.9 L (14.0-18.0) g/dl Hct 43 (42-52) % MCV 71 L (80-94) fL MCH 23 L (27-31) pg MCHC 33 (31-36) g/dl RDW 19 H (10.5-15) % Plt Count 353 (150-450) 10^3/ul MPV 9 (7.4-10.4) um3 Neut % (Auto) 61.9 (38-83) % Lymph % (Auto) 27.6 (25-47) % [place] % (Auto) 9.0 (1-9) % Eos % (Auto) 1.3 (0-6) % Baso % (Auto) 0.2 (0-2) % Absolute Neuts (auto) 5.1 (1.5-7.7) 10^3/ul Absolute Lymphs (auto) 2.3 (1.0-4.8) 10^3/ul Absolute Monos (auto) 0.7 (0-0.8) 10^3/ul Absolute Eos (auto) 0.1 (0-0.6) 10^3/ul Absolute Basos (auto) 0 (0-0.2) 10^3/ul Absolute Nucleated RBC 0 10^3/ul Nucleated RBC % 0 Sodium 140 (133-145) mmol/L Potassium Pending Chloride 104 (101-111) mmol/L Carbon Dioxide 27 (22-32) mmol/L Anion Gap Pending BUN 19 (6-24) mg/dL Creatinine 0.93 (0.67-1.17) mg/dL Est GFR ( Amer) 114.6 (>60) Est GFR (Non-Af Amer) 89.1 (>60) BUN/Creatinine Ratio 20.4 H (8-20) Glucose 95 (70-100) mg/dL Calcium 9.5 (8.6-10.3) mg/dL Total Bilirubin 0.60 (0.2-1.0) mg/dL AST Pending ALT 20 (7-52) U/L Alkaline Phosphatase 86 (34-104) U/L Total Creatine Kinase 221 (10-223) U/L Troponin I 0.03 (<0.04) ng/mL Total Protein 7.5 (6.4-8.9) g/dL Albumin 4.1 (3.2-5.2) g/dL Globulin 3.4 (2-4) g/dL Albumin/Globulin Ratio 1.2 (1-3) Urine Color Yellow Urine Appearance Clear Urine pH 6.0 (5-9) Ur Specific [place] 1.018 (1.010-1.030) Urine Protein Negative (Negative) Urine Ketones Negative (Negative) Urine Blood 2+ H (Negative) Urine Nitrate Negative (Negative) Urine Bilirubin Negative (Negative) Urine Urobilinogen Negative (Negative) Ur Leukocyte Esterase Negative (Negative) Urine WBC (Auto) Trace(0-5/hpf) (Absent) Urine RBC (Auto) 3+(>10/hpf) H (Absent) Urine Bacteria Absent (Absent) Urine Glucose Negative (Negative) Urine Ascorbic Acid * H (Negative) Microbiology and Other Data: Microbiology 03/31/17 18:38 Nasal Screen MRSA (PCR)([facility]) - Final Nasal Mrsa Negative Assess/Plan/Problems-Billing Assessment: HTN emergency in 41 yo M who had been aware of problems with HTN for the past 25yrs. - Patient Problems (1) Hypertensive emergency Comment: Pt's SBP is in the 170's today. Off nicardipine gtt. will start lopressor and norvasc. Monitor on telem another 24H. (2) Retrosternal thyroid goiter Comment: TSH WNL. Pt needs to f/u with PCP and thyroid US as outpatient. Pt is aware (3) Cardiomyopathy Comment: mod LVH, EF35%. suspect due to HTN emergency. cont BB and Norvasc. Nay need to switch Norvasc to ACEI. Needs repeat echi in the near future (4) DVT prophylaxis Comment: ambulation Status and Disposition: OBV switched to inpatient. pt needs another 24H of monitored med titration for HTN
[2017-04-01] MEDS: Metoprolol Tartrate TAB* 25 MG PO SCH ×2 (09:54→20:23)
[2017-04-01] MEDS: amLODIPine TAB* 5 MG PO SCH (09:55)
[2017-04-01] MEDS: Mouth Piece, Nicotine* 1 EACH CARTRIDGE INH PRN (15:27)
[2017-04-01] MEDS: Nicotine Inhaler* 10 MG AMP INH PRN ×2 (15:28→18:12)
[2017-04-01] MEDS: Nicotine PATCH 21 MG/24 HR* PATCH TRANSDERM SCH (15:37)
[2017-04-01] MEDS: Ramipril CAP* 2.5 MG PO SCH (16:24)
--- NOTE | 2017-04-01 16:33 | CONS ---
NEUROLOGY CONSULTATION: DATE OF CONSULT: 04/01/17 LOCATION: He is an inpatient, ICU bed 3. REFERRING PHYSICIAN: Dr. Lane. CHIEF COMPLAINT: Headache, unsteadiness. HISTORY OF PRESENT ILLNESS: Gabino Pacheco is a 41-year-old man who presented yesterday to the hospital with uncontrolled hypertension, nuchal headache, and unsteadiness. He has a long history of hypertension and was on medication, but ran out and does not have a primary care physician. Few days ago he started to note a headache at the base of his skull in the back. He felt intermittently unsteady. He had his blood pressure checked at [facility] and it was very elevated, he thinks about 190/120. He felt even worse the following day and his girlfriend apparently checked his blood pressure and it was at 205/140, so he presented to the [facility] and was transferred to the ER. In the emergency room, his blood pressure has remained elevated in excess of 190 systolic and in excess of 120 diastolic. He was treated with IV labetalol without significant change, so he was admitted for intravenous nicardipine. PAST MEDICAL HISTORY: His past medical history is notable only for hypertension. MEDICATIONS: He is not taking any medications currently, but he is supposed to be on an antihypertensive, possibly hydrochlorothiazide. ALLERGIES: He does not have any drug allergies. FAMILY HISTORY: He has a strong family history of hypertension, diabetes, stroke, and heart disease. REVIEW OF SYSTEMS: Negative for headaches other than in the setting of this acute illness, which has since resolved. No change in vision or double vision. No history of diabetes or kidney disease. No falls or unsteadiness since yesterday. PHYSICAL EXAM: He is well nourished and well hydrated. Most recent blood pressure in the computer record is 176/116, it was 160/112 before that, heart rate is in the 70s and regular, respirations are 14, oxygen saturation is 99% on room air. Lungs are clear bilaterally. Heart is in a regular rate and rhythm with a S3 gallop. Carotid pulses are present. There are no cervical bruits. Oral mucosa is moist and atraumatic. Neurologically, pupils react equally from 4.5 to 2.5 mm. Funduscopic exam is normal bilaterally, no papilledema or hemorrhages. Eye movements are normal and there is no ptosis. Visual ponce are full. Facial musculature is symmetric. Palate and tongue are normal, and speech is clear. Hearing is intact. Motor exam reveals normal tone and strength in the limbs. There is no tremor. Romberg sign is absent. Standard and tandem gait are normal. He is alert and oriented and a good detailed historian. Memory is intact and language is fluent. He has good attention, concentration, and fund of knowledge. LABORATORY DATA: Includes an MRI of the brain, which I reviewed the images of, which looks normal. CT angiogram of the brain is likewise normal. CT angiogram of the carotid system is normal without extracranial stenosis. Echocardiogram reveals global decrease in left ventricular function with an ejection fraction of 35% to 40%. Additional laboratory studies notable for mild anemia with a hemoglobin of 13.9 and MCV low at 71. Chemistries are unremarkable. Cholesterol 150 and LDL 87. TSH is 1.24 and free T4 is 1.10. Urinalysis reveals 2+ blood and 3+ red blood cells. CTA of the chest and abdomen reveals an enlarged thyroid. IMPRESSION: Hypertensive urgency. This has since resolved and fortunately no evidence of a cerebrovascular event. I reinforced the importance of blood pressure control in terms of decreasing his risk of stroke, brain hemorrhage, or a cardiac event. He will need a followup echocardiogram after he establishes care with a primary care doctor. I do not see any need for statins or other therapy other than blood pressure control at this point in time. [id number]/[facility] #: [id number] GRACE
[2017-04-02] MEDS: Nicotine Inhaler* 10 MG AMP INH PRN ×2 (02:44→09:25)
[2017-04-02 06:58] LABS: BUN/Creatinine Ratio 15.8 (8-20); Calcium 9.3 mg/dL (8.6-10.3); EGFR African American 111.8 (>60); EGFR Non-African American 86.9 (>60); Potassium 3.4 mmol/L (3.5-5.0)
[2017-04-02] MEDS ORDERED: Ramipril CAP* 5 MG PO SCH (09:12)
[2017-04-02] MEDS: Metoprolol Tartrate TAB* 25 MG PO SCH (09:23)
[2017-04-02] MEDS: amLODIPine TAB* 5 MG PO SCH (09:23)
[2017-04-02] MEDS: Mouth Piece, Nicotine* 1 EACH CARTRIDGE INH PRN (09:37)
[2017-04-02] MEDS: Ramipril CAP* 2.5 MG PO SCH (10:02)
[2017-04-02 13:44] VITALS: BP 166/105
--- NOTE | 2017-04-03 10:55 | DS ---
CC: Dr. Pantoja* DISCHARGE SUMMARY: DATE OF ADMISSION: 03/31/17 DATE OF DISCHARGE: 04/02/17 PRIMARY CARE DOCTOR: Dr. Pantoja. DISCHARGE DIAGNOSES: 1. Ataxia due to hypertension related encephalopathy in a patient who presented with hypertensive emergency. 2. Retrosternal goiter. 3. Cardiomyopathy with EF of 35 to 40, likely related to uncontrolled hypertension. SECONDARY DIAGNOSIS: The patient has a history of uncontrolled hypertension in the past and medical noncompliance. MEDICATIONS AT DISCHARGE: Include: 1. Metoprolol tartrate 12.5 mg b.i.d. 2. Altace 2.5 mg daily. 3. Norvasc 10 mg daily. LABORATORY DATA/STUDIES PERFORMED DURING THE HOSPITAL STAY: Included: On 04/02/17, sodium of 137, potassium 3.4, chloride 100, carbon dioxide 32, BUN 15, and creatinine 0.95. The patient's cholesterol profile showed triglycerides of 65, total cholesterol of 150, LDL of 87, and HDL of 50. The patient's TSH was 1.24 and free T4 of 1.1. Urinalysis showed trace blood. The patient's CT angiogram of chest, abdomen, and pelvis, obtained on 03/31/17, showed, impression: "No evidence for aortic dissection or pulmonary embolism. Partial anomalous pulmonary venous return. The left upper lobe pulmonary vein drained into the left innominate vein. Findings suggestive of left ventricular hypertrophy, consider echocardiography for further evaluation. Large nodular substernal goiter, consider followup thyroid ultrasound evaluation. Probable cholelithiasis." Head CT obtained on 03/31/17. Impression: "No evidence for aneurysm. No evidence for carotid stenosis. Nodular substernal goiter causing tracheal deviation. Consider followup outpatient ultrasound imaging for further evaluation." Brain MRI obtained on 03/31/17. Impression: "Negative exam." Brain CT obtained on the same day was also unremarkable. A transthoracic echocardiogram obtained on 03/31/17 showed EF of 35% to 40% with moderate LVH with impaired relaxation and abnormal left ventricular diastolic filling. There was trace mitral regurgitation, trace tricuspid regurgitation, and trace aortic regurgitation. HOSPITALIZATION COURSE: Mr. Pacheco is a 41-year-old male who stated that he has had uncontrolled hypertension for over 20 years, but had never really taken any medications for that. He remembers that at some point in his life he used Altace for his blood pressure, but he had not seen a doctor for many years. He came into the hospital with acute onset of ataxia, with systolic pressures in the 200s range. In fact his initial blood pressure on presentation recorded by Dr. Lane was 205/140. He was also at that point complaining of a headache. He was admitted to the Intensive Care Unit with a diagnosis of hypertensive emergency. He was placed on nicardipine drip and subsequent MRI of the brain did not show any abnormalities. Dr. Belcher saw the patient in consultation; by that time, approximately 24 hours after his initial admission, his ataxia resolved. The most likely diagnosis was hypertensive encephalopathy. Nicardipine was stopped within 12 hours or so of the patient's hospital stay and then he was introduced to Norvasc, Altace, and metoprolol. His pressures, by the time of his discharge, are still in the 160s systolically, but they are much better controlled than they were. The patient also is eager to go home. His transthoracic echocardiogram showed LVH, with EF of 35% to 40%. Due to the fact the patient's troponin had been unremarkable and he had no symptoms of possibility of angina, no chest pain or shortness of breath, it is likely his cardiomyopathy is related to hypertension. At this point, it is recommended for the patient to continue with no-salt diet, stop smoking, and continue his medications, and follow up with his primary care provider with a repeat transthoracic echocardiogram in 1 to 2 months. He also may need an outpatient cardiology evaluation in regards to that. The patient also was noted to have tracheal deviation and subsequent studies, as noted above, noted a substernal goiter. The patient had no symptoms associated with that and his thyroid hormones were unremarkable. He is recommended to follow up with is primary care provider with ultrasound of the goiter. He may need surgical intervention at some point, but his blood pressure needs to be better controlled and his heart rate needs to be stronger before he is a good candidate for surgery. At discharge, we had a long discussion with the patient about tobacco cessation , using no-salt diet and exercise. The patient understands all the recommendations. Our office also set up an appointment with the primary care provider who is able to see the patient within the next 8 days, it is Dr. Pantoja, and the followup appointment is scheduled on 04/10/17. The patient is strongly encouraged to continue to take his medications, to stop smoking, and to see Dr. Pantoja as outpatient for followup of the ongoing issues. PHYSICAL EXAMINATION: At the time of discharge, blood pressure of 160/109, heart rate of 71 and regular, respiratory rate 15, and oxygen saturation 98% on room air, and temperature of 98.3. General Appearance: This is a very pleasant 41-year-old male who is in no acute distress. Alert, awake, and oriented x3. HEENT: Head atraumatic and normocephalic. Eyes: Pupils are equal, round, and reactive to light and accommodation. Oropharynx clear. Mucosa moist. Neck: Supple. No JVD, no bruits bilaterally. Cardiovascular: Regular rate and rhythm. No murmur. Respiratory: Clear to auscultation bilaterally. Abdomen: Soft and nontender. Bowel sounds are present in all 4 quadrants. Extremities: There is no edema, pulses are +2 bilaterally. There is no clubbing or cyanosis. Neuro Evaluation: Speech clear. Cranial nerves II through XII grossly intact. Motor strength is 5/5 bilaterally. Please note that this is a short summary of the patient's hospitalization. Please refer to further medical records for details. TIME SPENT: Approximately 40 minutes were spent on the patient's discharge. [id number]/[facility] #: [id number] GRACE
== END 2017-04-02 14:37 | disposition home or self-care (01) | DRG 305 ==
LOC: ED 12:40 → ICU 16:24 → OBSVTOIN 04-01 09:49 → MEDTELE 04-01 15:28
PROVIDERS: ADMIT Internal Medicine; ATTEND Internal Medicine
PROC: 3E0234Z Introduction of Serum, Toxoid and Vaccine into Muscle, Percutaneous Approach (ICD-10-PCS; principal; 2017-04-01)
DX: I16.1 Hypertensive emergency (principal); I67.4 Hypertensive encephalopathy; I11.9 Hypertensive heart disease without heart failure; F17.200 Nicotine dependence, unspecified, uncomplicated; Z82.49 Family history of ischemic heart disease and other diseases of the circulatory system; Z83.3 Family history of diabetes mellitus; Z72.89 Other problems related to lifestyle; R27.0 Ataxia, unspecified; Z23 Encounter for immunization; I08.3 Combined rheumatic disorders of mitral, aortic and tricuspid valves; E04.9 Nontoxic goiter, unspecified
CPT/HCPCS: 36415; 70450; 70496; 70498; 70551; 71010; 71275; 74174; 80048; 80053; 80061; 81003; 81015; 82550; 84439; 84443; 84484; 85025; 85060; 87641; 90686; 93005; 93306; 99203; A9270-GY; G0378; G0463; Q9967

== ENCOUNTER 2017-08-10 12:31 | Emergency (ER) | payer OTHER ==
[2017-08-10 13:46] VITALS: BP 135/88
[2017-08-10] MEDS ORDERED: Ondansetron ODT TAB* 4 MG SL ONE (14:20)
--- NOTE | 2017-08-10 14:29 | UC ---
FLU HPI - HPI Summary HPI Summary: Patient presents to the with CC of nausea, some body aches and wants to have his BP checked. Denies any fevers, sweats but endorses some chills. Hospitalizations previously d/t HTN. Denies V/C. Endorses loose stool. Has been otherwise healthy, but is a heavy smoker. Denies family cardiac history. - History of Current Complaint Chief Complaint: UCGeneralIllness Stated Complaint: FLU SYMPTOMS Time Seen by Provider: 08/10/17 13:46 Hx Obtained From: Patient Onset/Duration: Sudden Onset Severity Currently: Mild Severity Initially: Mild Pain Intensity: 0 Pain Scale Used: 0-10 Numeric Associated Signs & Symptoms: Positive: F/C - Risk Factors Influenza Risk Factors: Negative - Allergy/Home Medications Allergies/Adverse Reactions: Allergies Allergy/AdvReac Type Severity Reaction Status Date / Time No Known Allergies Allergy Verified 08/10/17 13:35 PMH/Surg Hx/FS Hx/Imm Hx Previously Healthy: Yes - Surgical History Surgical History: None - Family History Known Family History: Positive: Hypertension, Diabetes - Social History Occupation: Employed Part-time Lives: With Family Alcohol Use: Occasionally Substance Use Type: Marijuana Smoking Status (MU): Current Every Day Smoker Type: Cigarettes Amount Used/How Often: 4/day Length of Time of Smoking/Using Tobacco: 20 years - Immunization History Most Recent Influenza Vaccination: unknown Most Recent Pneumonia Vaccination: unknown Review of Systems Constitutional: Negative Skin: Negative Respiratory: Negative Cardiovascular: Negative Gastrointestinal: Nausea Motor: Negative Neurological: Negative Psychological: Negative Is Patient Immunocompromised?: No All Other Systems Reviewed And Are Negative: Yes Physical Exam Triage Information Reviewed: Yes Appearance: Well-Appearing, No Pain Distress, Well-Nourished Vital Signs: Initial Vital Signs Temp 99.4 F 08/10/17 13:38 Pulse 76 08/10/17 13:38 Resp 18 08/10/17 13:38 BP 135/88 08/10/17 13:38 Pulse Ox 100 08/10/17 13:38 Vital Signs Reviewed: Yes Eye Exam: Normal Eyes: Positive: Conjunctiva Clear Neck exam: Normal Neck: Positive: Supple, Nontender, No Lymphadenopathy Respiratory Exam: Normal Respiratory: Positive: Chest non-tender, Lungs clear Cardiovascular Exam: Normal Cardiovascular: Positive: RRR Musculoskeletal Exam: Normal Musculoskeletal: Positive: Strength Intact Psychological: Positive: Normal Response To Family Skin Exam: Normal Flu Course/Dx - Course Course Of Treatment: Evaluated for flu symptoms. N - Differential Dx/Diagnosis Differential Diagnosis/HQI/PQRI: Influenza Provider Diagnoses: Acute Cough Discharge - Discharge Plan Condition: Stable Disposition: HOME Prescriptions: Ondansetron ODT TAB* [Zofran 4 MG Odt TAB*] 4 mg PO Q6H PRN #12 tab.odt MDD 4 PRN Reason: Nausea Forms: *Work Release Referrals: No Primary Care Phys,NOPCP [Primary Care Provider] - Additional Instructions: Zofran for nausea up to 4 times daily as needed fo
== END 2017-08-10 14:41 | disposition home or self-care (01) ==
LOC: UCEAST 12:31
DX: R05 Cough (principal); R11.0 Nausea; M79.1 Myalgia; F12.90 Cannabis use, unspecified, uncomplicated; F17.210 Nicotine dependence, cigarettes, uncomplicated
CPT/HCPCS: 87502; 99212; A9270-GY; G0463

== ENCOUNTER 2020-12-04 11:47 | Inpatient (IN) ==
[2020-12-04] MEDS ORDERED: NS 0.9% 1000 ml BAG 2,000 ML IV ONE (12:03)
[2020-12-04 13:04] LABS: Hematocrit 54 % (42-52); Hemoglobin 15.3 g/dL (14.0-18.0); Mean Corpuscular HGB Conc 29 g/dL (31-36); Mean Corpuscular Hemoglobin 23 pg (27-31); Mean Corpuscular Volume 81 fL (80-94); Mean Platelet Volume 10.7 fL (7.4-10.4); Platelet Count 399 10^3/uL (150-450); Red Blood Count 6.59 10^6 /uL (4.18-5.48); Red Cell Distribution Width 22 % (10-15); White Blood Count 13.4 10^3/uL (3.5-10.8)
[2020-12-04 13:08] LABS: Activated Partial Thrombo Time 30.6 seconds (26.0-38.0)
[2020-12-04 13:15] LABS: Ammonia 47 mcmol/L (16-53)
[2020-12-04 13:16] LABS: ALT 29 U/L (7-52); AST 23 U/L (13-39); Albumin 4.7 g/dL (3.2-5.2); Albumin/Globulin Ratio 1.1 (1-3); Alkaline Phosphatase 144 U/L (35-149); Anion Gap 22 mmol/L (2-11); Blood Urea Nitrogen 69 mg/dL (6-24); CO2 Carbon Dioxide 22 mmol/L (22-32); Calcium 10.8 mg/dL (8.6-10.3); Chloride 87 mmol/L (101-111); EGFR African American 23.7 (>60); EGFR Non-African American 19.6 (>60); Globulin 4.4 g/dL (2-4); Lipase 354 U/L (11.0-82.0); Magnesium 4.1 mg/dL (1.9-2.7); Potassium 4.6 mmol/L (3.5-5.0); Sodium 131 mmol/L (135-145); Total Protein 9.1 g/dL (6.4-8.9)
[2020-12-04 13:19] LABS: BNP 54 pg/mL (<=100)
[2020-12-04 13:23] LABS: Alcohol, S 12 mg/dL (<10)
[2020-12-04 13:47] LABS: Acetaminophen < 15 mcg/mL; Salicylate < 2.50 mg/dL (<30)
[2020-12-04] MEDS ORDERED: Insulin Infusion 100unit/100mL 100 UNIT/100 ML BAG IV SCH (14:00)
[2020-12-04 14:24] LABS: Cholesterol 210 mg/dL; HDL Cholesterol 59.5 mg/dL; LDL Cholesterol 103 mg/dL; Triglycerides 236 mg/dL
[2020-12-04 14:55] LABS: Urine Appearance Cloudy; Urine Bilirubin Negative (Negative); Urine Blood 3+ (Negative); Urine Color Yellow; Urine Glucose 3+(>=500 mg/dL) (Negative); Urine Ketones Trace (Negative); Urine Nitrite Negative (Negative); Urine Protein 1+(30 mg/dL) (Negative); Urine Specific Gravity 1.025 (1.002-1.030); Urine Urobilinogen Negative (Negative)
[2020-12-04] MEDS ORDERED: NS 0.9% 1000 ml BAG 1,000 ML IV ONE ×2 (15:10→17:52)
[2020-12-04 15:23] LABS: Urine Bacteria Absent (Absent); Urine Red Blood Cell 1+(3-5/hpf) (Absent); Urine Squamous Epithelial Cell Present (Absent); Urine White Blood Cell 3+(>20/hpf) (Absent)
[2020-12-04 15:51] LABS: Microcytosis 1+
[2020-12-04 15:52] LABS: ABS Lymphocytes 0.5 10^3/ul (1.0-4.8); ABS Monocytes 1.3 10^3/ul (0-0.8); ABS Neutrophils 11.6 10^3/ul (1.5-7.7); Lymphocyte % 4.1 %; Nucleated Red Blood Cells % 0.1
[2020-12-04 16:12] LABS: Calcium 10.8 mg/dL (8.6-10.3); Potassium 4.9 mmol/L (3.5-5.0)
[2020-12-04 16:17] LABS: Urine Benzodiazepine Screen None Detected (None Detect); Urine Cannabinoids Screen None Detected (None Detect); Urine Opiates Screen None Detected (None Detect)
[2020-12-04 16:17] LABS: EGFR African American 23.6 (>60); EGFR Non-African American 19.5 (>60)
[2020-12-04] MEDS ORDERED: Haloperidol 5 mg/ml SDV IV/IM 5 MG/ML AMP IV SLOW PU PRN (16:52)
[2020-12-04] MEDS ORDERED: Enoxaparin 40 MG/0.4 ML SYR SUBCUT SCH (17:00)
[2020-12-04] MEDS ORDERED: NS 0.45% 1000 ml BAG 1,000 ML IV SCH (17:00)
[2020-12-04] MEDS ORDERED: Lorazepam PYXIS KEY PRN (17:59)
[2020-12-04] MEDS ORDERED: LORazepam 2 mg VIAL 1 ml IV PUSH PRN (17:59)
[2020-12-04] MEDS ORDERED: NS 0.9% 1000 ml BAG 1,000 ML IV SCH (18:00)
[2020-12-04 18:10] LABS: Anion Gap 16 mmol/L (2-11); Blood Urea Nitrogen 67 mg/dL (6-24); CO2 Carbon Dioxide 23 mmol/L (22-32); Calcium 10.6 mg/dL (8.6-10.3); Chloride 106 mmol/L (101-111); EGFR Non-African American 22.3 (>60); Potassium 3.4 mmol/L (3.5-5.0); Sodium 145 mmol/L (135-145)
[2020-12-04] MEDS ORDERED: Thiamine 100 MG/ML 2 ml VIAL 500 MG in NS 0.9% 250 ml 250 ML IV ONE (18:13)
[2020-12-04 18:30] LABS: Glucose 1249 mg/dL (70-100); Glucose Confirmatory 1249 mg/dL (70-100)
[2020-12-04] MEDS ORDERED: NS 0.9% w/ 40 Meq KCL 1000 ML 1,000 ML IV SCH ×2 (19:00)
[2020-12-04] MEDS ORDERED: NS 0.45% KCl 20 Meq 1000 ml 1,000 ML IV SCH ×2 (19:00→19:08)
[2020-12-04] MEDS: KCL 20 MEQ/100 ML IVPREMIX 20 MEQ/100 ML BAG IV SCH ×2 (19:29→22:18)
[2020-12-04] MEDS: Enoxaparin 30 MG/0.3 ML SYR SUBCUT SCH (19:31)
[2020-12-04] MEDS: cefTRIAXone 2 GM ADDV.VIAL 2 GM in NS 0.9% 100 ml BAG 100 ML IV SCH (19:34)
[2020-12-04 19:54] LABS: Magnesium 4.1 mg/dL (1.9-2.7)
[2020-12-04 19:59] LABS: Phosphorus 6.6 mg/dL (2.5-5.0)
[2020-12-04 20:14] LABS: Potassium 4.1 mmol/L (3.5-5.0)
[2020-12-04 20:20] LABS: EGFR African American 30.2 (>60); EGFR Non-African American 24.9 (>60)
[2020-12-04] MEDS: DOXYcycline 100 MG in NS 0.9% 250 ml 250 ML IVPB SCH (20:21)
[2020-12-04 22:51] LABS: Glucose Confirmatory 824 mg/dL (70-100)
[2020-12-04 23:02] LABS: Calcium 9.8 mg/dL (8.6-10.3)
[2020-12-04 23:05] LABS: Potassium 4.9 mmol/L (3.5-5.0)
[2020-12-04 23:07] LABS: EGFR African American 38.2 (>60); EGFR Non-African American 31.6 (>60)
[2020-12-04 23:15] LABS: Glucose 1977 mg/dL (70-100); Troponin I 0.04 ng/mL (<0.03)
[2020-12-04 23:30] LABS: Glucose Confirmatory 783 mg/dL (70-100)
[2020-12-05 00:41] LABS: Glucose Confirmatory 773 mg/dL (70-100)
[2020-12-05 01:42] LABS: Glucose Confirmatory 750 mg/dL (70-100)
[2020-12-05 02:30] LABS: CO2 Carbon Dioxide 20 mmol/L (22-32); Calcium 9.1 mg/dL (8.6-10.3); Potassium 4.3 mmol/L (3.5-5.0)
[2020-12-05 02:36] LABS: Blood Urea Nitrogen 49 mg/dL (6-24); EGFR African American 42.8 (>60); EGFR Non-African American 35.3 (>60)
[2020-12-05 02:37] LABS: Anion Gap 15 mmol/L (2-11); Chloride 120 mmol/L (101-111); Glucose 719 mg/dL (70-100); Glucose Confirmatory 719 mg/dL (70-100); Sodium 155 mmol/L (135-145)
[2020-12-05 03:51] LABS: Glucose Confirmatory 773 mg/dL (70-100)
[2020-12-05] MEDS ORDERED: D5W 1000 ml BAG 1,000 ML IV SCH (04:00)
[2020-12-05 04:49] LABS: Glucose Confirmatory 738 mg/dL (70-100)
[2020-12-05 06:07] LABS: Glucose Confirmatory 784 mg/dL (70-100)
[2020-12-05] MEDS: DOXYcycline 100 MG in NS 0.9% 250 ml 250 ML IVPB SCH ×3 (06:25→21:45)
[2020-12-05 06:56] LABS: Hematocrit 48 % (42-52); Hemoglobin 15.2 g/dL (14.0-18.0); Red Blood Count 6.54 10^6 /uL (4.18-5.48); White Blood Count 16.8 10^3/uL (3.5-10.8)
[2020-12-05 06:57] LABS: ABS Lymphocytes 1.1 10^3/ul (1.0-4.8); ABS Monocytes 1.4 10^3/ul (0-0.8); ABS Neutrophils 14.2 10^3/ul (1.5-7.7); Lymphocyte % 6.5 %; Mean Corpuscular HGB Conc 32 g/dL (31-36); Mean Corpuscular Hemoglobin 23 pg (27-31); Mean Platelet Volume 10.3 fL (7.4-10.4); Platelet Count 343 10^3/uL (150-450); Red Cell Distribution Width 20 % (10-15)
[2020-12-05 06:58] LABS: Mean Corpuscular Volume 73 fL (80-94)
[2020-12-05 07:00] LABS: Blood Urea Nitrogen 51 mg/dL (6-24); CO2 Carbon Dioxide 22 mmol/L (22-32); Calcium 9.7 mg/dL (8.6-10.3); EGFR African American 37.4 (>60); EGFR Non-African American 30.9 (>60); Magnesium 3.3 mg/dL (1.9-2.7); Phosphorus 5.4 mg/dL (2.5-5.0)
[2020-12-05 07:08] LABS: Anion Gap 16 mmol/L (2-11); Chloride 117 mmol/L (101-111); Sodium 155 mmol/L (135-145)
[2020-12-05 07:17] LABS: Glucose 816 mg/dL (70-100); Glucose Confirmatory 816 mg/dL (70-100)
[2020-12-05 07:50] LABS: Calcium 9.7 mg/dL (8.6-10.3); EGFR African American 39.2 (>60); EGFR Non-African American 32.4 (>60); Potassium 4.6 mmol/L (3.5-5.0)
[2020-12-05] MEDS ORDERED: Ondansetron 4 mg VIAL 2 MG/ML 2 ml VIAL IV PRN (07:54)
[2020-12-05] MEDS ORDERED: Ondansetron 4 mg VIAL 2 MG/ML 2 ml VIAL ONE (07:57)
[2020-12-05] MEDS: Thiamine 100 MG/ML 2 ml VIAL 250 MG in NS 0.9% 100 ml BAG 100 ML IV SCH (08:02)
[2020-12-05 09:50] LABS: Glucose Confirmatory 836 mg/dL (70-100)
[2020-12-05 09:57] LABS: C Reactive Protein 41.64 mg/L (<8.01)
[2020-12-05] MEDS: NS 0.45% KCl 20 Meq 1000 ml 1,000 ML IV SCH ×2 (10:01→14:35)
[2020-12-05 10:51] LABS: Glucose Confirmatory 871 mg/dL (70-100)
[2020-12-05] MEDS ORDERED: Morphine 2 MG/ML SYRINGE IV PRN (12:02)
[2020-12-05] MEDS ORDERED: Morphine 2 MG/ML SYRINGE ONE (12:03)
[2020-12-05] MEDS: Metoclopramide 5 MG/ML VIAL (10 mg) IV SLOW PU PRN (12:04)
[2020-12-05 12:10] LABS: Glucose Confirmatory 816 mg/dL (70-100)
[2020-12-05 12:17] LABS: Blood Urea Nitrogen 52 mg/dL (6-24); CO2 Carbon Dioxide 16 mmol/L (22-32); Calcium 8.8 mg/dL (8.6-10.3); EGFR African American 39.8 (>60); EGFR Non-African American 32.9 (>60)
[2020-12-05 12:20] LABS: Anion Gap 22 mmol/L (2-11); Chloride 116 mmol/L (101-111); Sodium 154 mmol/L (135-145)
[2020-12-05 12:41] LABS: Glucose 826 mg/dL (70-100)
[2020-12-05] MEDS ORDERED: Insulin Infusion 100unit/100mL 100 UNIT/100 ML BAG IV SCH ×2 (13:00→15:10)
[2020-12-05 13:45] LABS: Troponin I 0.07 ng/mL (<0.03)
[2020-12-05 14:22] LABS: Blood Urea Nitrogen 51 mg/dL (6-24); CO2 Carbon Dioxide 18 mmol/L (22-32); Calcium 8.7 mg/dL (8.6-10.3); EGFR African American 38.8 (>60); Potassium 4.8 mmol/L (3.5-5.0)
[2020-12-05 14:26] LABS: Anion Gap 19 mmol/L (2-11); Chloride 116 mmol/L (101-111); Glucose 800 mg/dL (70-100); Glucose Confirmatory 800 mg/dL (70-100); Sodium 153 mmol/L (135-145)
[2020-12-05 15:27] LABS: Glucose Confirmatory 751 mg/dL (70-100)
[2020-12-05 16:39] LABS: Glucose Confirmatory 652 mg/dL (70-100)
[2020-12-05 17:42] LABS: Blood Urea Nitrogen 48 mg/dL (6-24); CO2 Carbon Dioxide 23 mmol/L (22-32); EGFR African American 38.2 (>60); EGFR Non-African American 31.6 (>60); Potassium 4.1 mmol/L (3.5-5.0)
[2020-12-05 17:43] LABS: Anion Gap 13 mmol/L (2-11); Chloride 122 mmol/L (101-111); Glucose 616 mg/dL (70-100); Sodium 158 mmol/L (135-145)
[2020-12-05] MEDS ORDERED: NS 0.45% KCl 20 Meq 1000 ml 1,000 ML IV SCH (18:14)
[2020-12-05 18:57] LABS: Glucose Confirmatory 555 mg/dL (70-100)
[2020-12-05 18:57] LABS: Troponin I 0.08 ng/mL (<0.03)
[2020-12-05 20:05] LABS: Glucose Confirmatory 485 mg/dL (70-100)
[2020-12-05] MEDS ORDERED: NS 0.9% 100 ml BAG 100 ML ONE (20:59)
[2020-12-05] MEDS ORDERED: NS 0.9% 250 ml 250 ML ONE (20:59)
[2020-12-05] MEDS: Enoxaparin 30 MG/0.3 ML SYR SUBCUT SCH (21:02)
[2020-12-05] MEDS: cefTRIAXone 2 GM ADDV.VIAL 2 GM in NS 0.9% 100 ml BAG 100 ML IV SCH (21:02)
[2020-12-05 21:16] LABS: Glucose Confirmatory 415 mg/dL (70-100)
[2020-12-06 00:05] LABS: CO2 Carbon Dioxide 18 mmol/L (22-32); Calcium 8.8 mg/dL (8.6-10.3)
[2020-12-06 00:11] LABS: Blood Urea Nitrogen 43 mg/dL (6-24); Chloride 130 mmol/L (101-111); EGFR Non-African American 36.4 (>60); Glucose 264 mg/dL (70-100)
[2020-12-06 00:12] LABS: Troponin I 0.09 ng/mL (<0.03)
[2020-12-06] MEDS ORDERED: Insulin GLARGINE 100 un/ml 10 ml VIAL SUBCUT ONE (00:16)
[2020-12-06] MEDS ORDERED: Dextrose 50% Syringe 50 ml 25 GM/50 ML SYRINGE IV PUSH PRN ×3 (00:17→13:01)
[2020-12-06 00:27] LABS: Anion Gap 13 mmol/L (2-11)
[2020-12-06 03:59] LABS: Sodium 161 mmol/L (135-145)
[2020-12-06 04:49] LABS: Blood Urea Nitrogen 39 mg/dL (6-24); CO2 Carbon Dioxide 26 mmol/L (22-32); Calcium 8.8 mg/dL (8.6-10.3); EGFR Non-African American 42.2 (>60); Glucose 130 mg/dL (70-100); Magnesium 2.8 mg/dL (1.9-2.7); Phosphorus 3.1 mg/dL (2.5-5.0)
[2020-12-06 05:03] LABS: Hematocrit 47 % (42-52); Hemoglobin 14.8 g/dL (14.0-18.0); Mean Corpuscular HGB Conc 32 g/dL (31-36); Mean Corpuscular Hemoglobin 23 pg (27-31); Mean Corpuscular Volume 73 fL (80-94); Red Blood Count 6.46 10^6 /uL (4.18-5.48); Red Cell Distribution Width 20 % (10-15); White Blood Count 14.7 10^3/uL (3.5-10.8)
[2020-12-06 05:15] LABS: Anion Gap 7 mmol/L (2-11); Chloride 133 mmol/L (101-111); Sodium 166 mmol/L (135-145)
[2020-12-06] MEDS ORDERED: D5W 1/2 NS 1000 ml BAG 1,000 ML IV SCH (07:00)
[2020-12-06] MEDS: Thiamine 100 MG/ML 2 ml VIAL 250 MG in NS 0.9% 100 ml BAG 100 ML IV SCH (07:47)
[2020-12-06 08:10] LABS: Potassium Redraw 4.2 mmol/L (3.5-5.0)
[2020-12-06 08:16] LABS: ABS Basophils 0.1 10^3/ul (0-0.2); ABS Eosinophils 0.1 10^3/ul (0-0.6); ABS Lymphocytes 1.6 10^3/ul (1.0-4.8); ABS Monocytes 1.2 10^3/ul (0-0.8); ABS Neutrophils 11.7 10^3/ul (1.5-7.7); Eosinophil % 0.9 %; Lymphocyte % 11.1 %; Mean Platelet Volume 9.2 fL (7.4-10.4); Platelet Count 282 10^3/uL (150-450)
[2020-12-06] MEDS ORDERED: Buffered Lidocaine 1% SYRIN 1 ml INTRADERM ONE (08:37)
[2020-12-06 09:08] LABS: Calcium 8.8 mg/dL (8.6-10.3); Potassium 4.3 mmol/L (3.5-5.0)
[2020-12-06 09:14] LABS: EGFR African American 47.9 (>60); EGFR Non-African American 39.6 (>60)
[2020-12-06 09:19] LABS: Troponin I 0.08 ng/mL (<0.03)
[2020-12-06] MEDS ORDERED: Ondansetron 4 mg VIAL 2 MG/ML 2 ml VIAL IV PRN (09:29)
[2020-12-06] MEDS: Metoclopramide 5 MG/ML VIAL (10 mg) IV SLOW PU PRN (09:35)
[2020-12-06 09:39] LABS: Glucose Confirmatory 402 mg/dL (70-100)
[2020-12-06] MEDS: DOXYcycline 100 MG in NS 0.9% 250 ml 250 ML IVPB SCH (10:01)
[2020-12-06 12:53] LABS: Calcium 8.1 mg/dL (8.6-10.3); EGFR African American 49.7 (>60); EGFR Non-African American 41.1 (>60); Potassium 4.4 mmol/L (3.5-5.0)
[2020-12-06] MEDS: Saline FLUSH-PERIPHERAL 10 ML SYRINGE IV FLUSH SCH ×2 (13:11→21:29)
[2020-12-06] MEDS: NS 0.45% 1000 ml BAG 1,000 ML IV SCH ×2 (13:17→20:03)
[2020-12-06 15:24] LABS: Glucose Confirmatory 469 mg/dL (70-100)
[2020-12-06 16:32] LABS: Calcium 8.5 mg/dL (8.6-10.3); EGFR African American 47.9 (>60); EGFR Non-African American 39.6 (>60)
[2020-12-06 18:18] LABS: Calcium 8.6 mg/dL (8.6-10.3); EGFR African American 52.4 (>60); EGFR Non-African American 43.3 (>60); Potassium 3.9 mmol/L (3.5-5.0)
[2020-12-06] MEDS: cefTRIAXone 2 GM ADDV.VIAL 2 GM in NS 0.9% 100 ml BAG 100 ML IV SCH (20:00)
[2020-12-06] MEDS ORDERED: Potassium Chlor 20 meq TAB.ER PO ONE (20:38)
[2020-12-06] MEDS: Enoxaparin 30 MG/0.3 ML SYR SUBCUT SCH (21:28)
[2020-12-06] MEDS: Insulin GLARGINE 100 un/ml 10 ml VIAL SUBCUT SCH (21:29)
[2020-12-06 22:54] LABS: Calcium 8.6 mg/dL (8.6-10.3); EGFR African American 58.3 (>60); EGFR Non-African American 48.2 (>60)
[2020-12-06 22:57] LABS: Potassium 4.1 mmol/L (3.5-5.0)
[2020-12-07] MEDS: Calcium Carb (TUMS) 500 mg CHEW TAB PO PRN ×3 (03:08→22:04)
[2020-12-07] MEDS ORDERED: NS 0.45% 1000 ml BAG 1,000 ML IV SCH (04:00)
[2020-12-07] MEDS: Saline FLUSH-PERIPHERAL 10 ML SYRINGE IV FLUSH SCH ×2 (05:38→14:55)
[2020-12-07 06:21] LABS: CO2 Carbon Dioxide 23 mmol/L (22-32); Calcium 8.7 mg/dL (8.6-10.3); Magnesium 1.8 mg/dL (1.9-2.7)
[2020-12-07 06:24] LABS: Hematocrit 39 % (42-52); Hemoglobin 12.4 g/dL (14.0-18.0); Mean Corpuscular HGB Conc 32 g/dL (31-36); Mean Corpuscular Hemoglobin 23 pg (27-31); Mean Corpuscular Volume 72 fL (80-94); Red Blood Count 5.39 10^6 /uL (4.18-5.48); Red Cell Distribution Width 20 % (10-15); White Blood Count 12.3 10^3/uL (3.5-10.8)
[2020-12-07 06:26] LABS: Chloride 125 mmol/L (101-111); Sodium 155 mmol/L (135-145)
[2020-12-07 06:27] LABS: Anion Gap 7 mmol/L (2-11); Blood Urea Nitrogen 29 mg/dL (6-24); EGFR African American 67.7 (>60); EGFR Non-African American 55.9 (>60); Glucose 258 mg/dL (70-100); Phosphorus 3.3 mg/dL (2.5-5.0)
[2020-12-07 06:47] LABS: ABS Eosinophils 0.2 10^3/ul (0-0.6); ABS Lymphocytes 1.8 10^3/ul (1.0-4.8); ABS Monocytes 1.1 10^3/ul (0-0.8); ABS Neutrophils 9.1 10^3/ul (1.5-7.7); Eosinophil % 1.9 %; Lymphocyte % 14.6 %; Mean Platelet Volume 9.6 fL (7.4-10.4); Nucleated Red Blood Cells % 0.1; Platelet Count 230 10^3/uL (150-450)
[2020-12-07] MEDS ORDERED: Magnesium Sulfate IV 3 GM in NS 0.9% 100 ml BAG 100 ML IVPB ONE (07:09)
[2020-12-07] MEDS: Insulin GLARGINE 100 un/ml 10 ml VIAL SUBCUT SCH (08:44)
[2020-12-07] MEDS: Thiamine 100 MG/ML 2 ml VIAL 250 MG in NS 0.9% 100 ml BAG 100 ML IV SCH (08:51)
[2020-12-07] MEDS ORDERED: Dextrose 50% Syringe 50 ml 25 GM/50 ML SYRINGE IV PUSH PRN (10:59)
[2020-12-07 13:38] LABS: Blood Urea Nitrogen 29 mg/dL (6-24); CO2 Carbon Dioxide 25 mmol/L (22-32); Calcium 8.5 mg/dL (8.6-10.3); EGFR African American 73.9 (>60); EGFR Non-African American 61.1 (>60); Glucose 395 mg/dL (70-100); Potassium 3.8 mmol/L (3.5-5.0)
[2020-12-07 13:42] LABS: Anion Gap 7 mmol/L (2-11); Chloride 121 mmol/L (101-111); Sodium 153 mmol/L (135-145)
[2020-12-07 13:56] LABS: % Iron Saturation 49 % (15-55); Iron 107 ug/dL (50-212); Total Iron Binding Capacity 218 mcg/dL (250-450); Transferrin 156 mg/dL (203-362); Unsaturated Iron Binding < 203 ug/dL
[2020-12-07] MEDS ORDERED: Potassium Chlor 20 meq TAB.ER PO ONE (13:59)
[2020-12-07 14:14] LABS: Ferritin 433.5 ng/mL (24-336)
[2020-12-07] MEDS: NS 0.45% 1000 ml BAG 1,000 ML IV SCH (16:48)
[2020-12-07 17:17] LABS: Calcium 9.3 mg/dL (8.6-10.3); EGFR African American 62.9 (>60); Potassium 3.8 mmol/L (3.5-5.0)
[2020-12-07] MEDS ORDERED: Insulin GLARGINE 100 un/ml 10 ml VIAL SUBCUT SCH (21:00)
[2020-12-07] MEDS: cefTRIAXone 2 GM ADDV.VIAL 2 GM in NS 0.9% 100 ml BAG 100 ML IV SCH (22:03)
[2020-12-07 22:49] LABS: EGFR African American 78.1 (>60); EGFR Non-African American 64.6 (>60); Potassium 3.7 mmol/L (3.5-5.0)
[2020-12-07] MEDS: Enoxaparin 30 MG/0.3 ML SYR SUBCUT SCH (22:54)
[2020-12-08] MEDS: NS 0.45% 1000 ml BAG 1,000 ML IV SCH (00:49)
[2020-12-08] MEDS: Saline FLUSH-PERIPHERAL 10 ML SYRINGE IV FLUSH SCH ×3 (04:59→13:02)
[2020-12-08] MEDS: Calcium Carb (TUMS) 500 mg CHEW TAB PO PRN (05:10)
[2020-12-08 09:20] LABS: Calcium 8.7 mg/dL (8.6-10.3); Magnesium 2.1 mg/dL (1.9-2.7)
[2020-12-08 09:28] LABS: EGFR African American 89.1 (>60); EGFR Non-African American 73.6 (>60); Phosphorus 3.4 mg/dL (2.5-5.0); Potassium 3.8 mmol/L (3.5-5.0)
[2020-12-08 09:37] LABS: Hematocrit 38 % (42-52); Hemoglobin 12.2 g/dL (14.0-18.0); Mean Corpuscular HGB Conc 32 g/dL (31-36); Mean Corpuscular Hemoglobin 23 pg (27-31); Mean Corpuscular Volume 73 fL (80-94); Red Cell Distribution Width 19 % (10-15); White Blood Count 8.9 10^3/uL (3.5-10.8)
[2020-12-08] MEDS: Al Hydrox/Mg Hydrox/Simet LIQ 30 ML UDC PO PRN (11:09)
[2020-12-08 11:25] LABS: Schistocytes 1+
[2020-12-08 12:32] LABS: Glucose Confirmatory 416 mg/dL (70-100)
[2020-12-08 13:59] LABS: Mean Platelet Volume 9.6 fL (7.4-10.4); Platelet Count 195 10^3/uL (150-450)
[2020-12-08] MEDS ORDERED: Insulin GLARGINE 100 un/ml 10 ml VIAL SUBCUT SCH ×2 (21:00)
[2020-12-08] MEDS: Enoxaparin 30 MG/0.3 ML SYR SUBCUT SCH (21:36)
[2020-12-09] MEDS: Al Hydrox/Mg Hydrox/Simet LIQ 30 ML UDC PO PRN ×2 (09:04→13:01)
[2020-12-09] MEDS: Calcium Carb (TUMS) 500 mg CHEW TAB PO PRN ×2 (09:05→13:00)
[2020-12-09 09:11] LABS: Calcium 8.8 mg/dL (8.6-10.3); EGFR African American 108.5 (>60); EGFR Non-African American 89.7 (>60); Potassium 3.5 mmol/L (3.5-5.0)
[2020-12-09 10:10] LABS: TSH Ultra Thyroid Stim Horm 1.74 mcIU/mL (0.34-5.60)
[2020-12-09 10:12] LABS: Free T4 1.1 ng/dL (0.61-1.12)
[2020-12-09 12:44] LABS: Glucose Confirmatory 522 mg/dL (70-100)
[2020-12-09] MEDS ORDERED: Dextrose 50% Syringe 50 ml 25 GM/50 ML SYRINGE IV PUSH PRN (12:47)
[2020-12-09] MEDS: Insulin GLARGINE 100 un/ml 10 ml VIAL SUBCUT SCH (22:30)
[2020-12-09] MEDS: Enoxaparin 30 MG/0.3 ML SYR SUBCUT SCH (22:32)
[2020-12-10] MEDS: Calcium Carb (TUMS) 500 mg CHEW TAB PO PRN ×4 (04:57→22:30)
[2020-12-10 08:06] LABS: Calcium 8.9 mg/dL (8.6-10.3); EGFR African American 114.3 (>60); EGFR Non-African American 94.5 (>60); Potassium 3.4 mmol/L (3.5-5.0)
[2020-12-10] MEDS: KCL 20 MEQ/100 ML IVPREMIX 20 MEQ/100 ML BAG IV ONE ×2 (10:47→18:06)
[2020-12-10] MEDS ORDERED: Potassium Chlor 10 meq TAB PO ONE (17:57)
[2020-12-10 18:22] LABS: Glucose Confirmatory 402 mg/dL (70-100)
[2020-12-10] MEDS: Enoxaparin 30 MG/0.3 ML SYR SUBCUT SCH ×2 (22:32→22:44)
[2020-12-10] MEDS: Nystatin SUSPENSION 100,000 UNITS/ML UDC SWISH SWAL SCH (22:32)
[2020-12-10] MEDS: Insulin GLARGINE 100 un/ml 10 ml VIAL SUBCUT SCH (22:35)
[2020-12-11] MEDS ORDERED: NS 0.9% 1000 ml BAG 1,000 ML IV SCH (02:00)
[2020-12-11 05:30] LABS: ABS Eosinophils 0.2 10^3/ul (0-0.6); ABS Lymphocytes 2.4 10^3/ul (1.0-4.8); ABS Neutrophils 5.9 10^3/ul (1.5-7.7); ABS Nucleated RBC 0.1 10^3/ul; Eosinophil % 2.6 %; Hematocrit 33 % (42-52); Hemoglobin 10.4 g/dL (14.0-18.0); Lymphocyte % 24.8 %; Mean Corpuscular HGB Conc 32 g/dL (31-36); Mean Corpuscular Hemoglobin 23 pg (27-31); Mean Corpuscular Volume 72 fL (80-94); Mean Platelet Volume 8.6 fL (7.4-10.4); Nucleated Red Blood Cells % 0.5; Platelet Count 273 10^3/uL (150-450); Red Blood Count 4.56 10^6 /uL (4.18-5.48); Red Cell Distribution Width 18 % (10-15); White Blood Count 9.5 10^3/uL (3.5-10.8)
[2020-12-11 05:40] LABS: Calcium 8.6 mg/dL (8.6-10.3); EGFR African American 111.3 (>60); Potassium 3.3 mmol/L (3.5-5.0)
[2020-12-11] MEDS ORDERED: Potassium Chlor 20 meq TAB.ER PO ONE (07:04)
[2020-12-11 07:31] LABS: Magnesium 1.8 mg/dL (1.9-2.7)
[2020-12-11] MEDS ORDERED: diPHENhydraMINE 25 mg TAB PO PRN (08:00)
[2020-12-11] MEDS: Nystatin SUSPENSION 100,000 UNITS/ML UDC SWISH SWAL SCH ×4 (08:38→20:28)
[2020-12-11] MEDS ORDERED: Magnesium Sulfate 2 gm BAG 2 GM/50 ML BAG IVPB ONE (09:46)
[2020-12-11] MEDS ORDERED: VERAPAMIL 2.5 MG/ML 2 ML VIAL ** 5 mg/2 ml ONE (10:52)
[2020-12-11] MEDS ORDERED: Midazolam 5 mg/5 ml VIAL 1 mg/ml 5 ml VIAL (5 mg) ONE (10:52)
[2020-12-11] MEDS ORDERED: fentaNYL 100 mcg/2 ml 50 MCG/ML VIAL ONE (10:52)
[2020-12-11] MEDS ORDERED: Heparin 1,000 UNIT/ML 10 ml (10,000 UNITS) CATHLAB/DIALYSIS ONE (10:52)
[2020-12-11] MEDS ORDERED: nitroGLYCERIN DRIP 25,000 MCG/250 ML BTL ONE (10:53)
[2020-12-11] MEDS ORDERED: Heparin 2 UNITS/ML 1000 mls 1,000 ML IV ONE (10:53)
[2020-12-11] MEDS ORDERED: Lidocaine 1% VIAL 10 MG/ML VIAL ONE (10:53)
[2020-12-11] MEDS ORDERED: Iohexol 350 (CONTRAST) 200 ML MDV IV ONE (10:53)
[2020-12-11 14:27] LABS: Submitting Laboratory Phone 6072744474
[2020-12-11] MEDS: Enoxaparin 30 MG/0.3 ML SYR SUBCUT SCH (20:27)
[2020-12-11] MEDS: Insulin GLARGINE 100 un/ml 10 ml VIAL SUBCUT SCH (20:28)
[2020-12-12 07:06] LABS: CO2 Carbon Dioxide 18 mmol/L (22-32); Calcium 8.8 mg/dL (8.6-10.3); Chloride 106 mmol/L (101-111); Sodium 136 mmol/L (135-145)
[2020-12-12 07:12] LABS: Blood Urea Nitrogen 17 mg/dL (6-24); EGFR Non-African American 74.4 (>60); Glucose 285 mg/dL (70-100)
[2020-12-12 07:19] LABS: Anion Gap 12 mmol/L (2-11)
[2020-12-12 08:20] LABS: Potassium Redraw 3.7 mmol/L (3.5-5.0)
[2020-12-12] MEDS: Calcium Carb (TUMS) 500 mg CHEW TAB PO PRN (08:37)
[2020-12-12] MEDS: Nystatin SUSPENSION 100,000 UNITS/ML UDC SWISH SWAL SCH ×4 (08:40→20:51)
[2020-12-12] MEDS ORDERED: COVID-19 VACCINE, AD26(JANSSEN)/PF 0.5 ML IM ONE (15:30)
[2020-12-12] MEDS: Insulin GLARGINE 100 un/ml 10 ml VIAL SUBCUT SCH (20:44)
[2020-12-12] MEDS: Enoxaparin 30 MG/0.3 ML SYR SUBCUT SCH (20:44)
[2020-12-13 07:20] LABS: Calcium 8.4 mg/dL (8.6-10.3); EGFR Non-African American 74.4 (>60); Potassium 3.5 mmol/L (3.5-5.0)
[2020-12-13] MEDS: Nystatin SUSPENSION 100,000 UNITS/ML UDC SWISH SWAL SCH ×2 (08:42→14:32)
[2020-12-13 12:18] VITALS: BP 108/60
== END 2020-12-13 17:43 | disposition home or self-care (01) | DRG 420 ==
LOC: ED 11:47 → ICU 15:25 → MED 12-07 14:24 → ICU 12-11 12:38 → MEDTELE 12-11 12:45
PROVIDERS: ADMIT Surgery Surgical Critical Care; ATTEND Student in an Organized Health Care Education/Training Program